=== PATIENT | female | born 1930 | race Caucasian/White ===

== ENCOUNTER → 2017-06-15 | Outpatient (CLI) | payer BC ==
[~2017-06-15] MED LIST: CITA40TA4; CYAN10005 SL; DVN80 PO; LEVO25TA5 PO; LPT40 PO; MRLP120 PO; MULT-190 PO; PPTBS PO; QUIN40TA18 PO; TPRSR/50 PO
[2017-06-15 11:06] LABS: BASO % 0.5 %; BASO ABS # 0.03 K/uL (0-0.2); COMPLETE YES; EOS % 0.3 %; HEMATOCRIT 36.2 % (37-47); IG% 0.2 %; LYMPH % 13.9 %; LYMPH ABS # 0.83 K/uL (1.2-3.4); MEAN CELL VOLUME 94.8 fL (80-100); MEAN CORPUSCULAR HEMOGLOBIN 31.9 pg (25-34); MEAN CORPUSCULAR HGB CONC 33.7 g/dl (32-36); MONO % 11.9 %; NEUT % 73.2 %; PLATELET COUNT 229 K/uL (130-400); RED BLOOD COUNT 3.82 M/uL (4.2-5.4); WHITE BLOOD COUNT 5.98 K/uL (4.8-10.8)
[2017-06-15 11:29] LABS: ALT/SGPT 19 U/L (12-78); AST/SGOT 17 U/L (15-37); BLOOD UREA NITROGEN 25 mg/dl (7-18); BUN/CREATININE RATIO 21.8 (10-20); CARBON DIOXIDE 28 mmol/L (21-32); CHLORIDE 104 mmol/L (98-107); CREATININE 1.14 mg/dl (0.60-1.20); GLUCOSE 122 mg/dl (70-99); SODIUM 139 mmol/L (136-145)
[2017-06-15 11:40] LABS: ALKALINE PHOSPHATASE 107 U/L (45-117); CHOLESTEROL 136 mg/dl (0-200); CHOLESTEROL/HDL RATIO 2.2; HDL CHOLESTEROL 63 mg/dl; LDL CHOLESTEROL CALCULATED 59 mg/dl; TRIGLYCERIDES 68 mg/dl (0-150); VERY LOW DENSITY LIPOPROT CALC 14 mg/dl
== END | disposition home or self-care (01) ==
LOC: C.LABBC 08:41
PROVIDERS: ATTEND Nurse Practitioner Adult Health
DX: D64.9 Anemia, unspecified (principal); E03.9 Hypothyroidism, unspecified; E78.00 Pure hypercholesterolemia, unspecified

== ENCOUNTER → 2017-07-14 | Outpatient (CLI) | payer BC ==
[2017-07-14 14:35] LABS: ESTIMATED AVERAGE GLUCOSE 114 mg/dl; HA1C FLAG Normal (Normal)
== END | disposition home or self-care (01) ==
LOC: C.LABBC 10:42
PROVIDERS: ATTEND Nurse Practitioner Adult Health
DX: R73.9 Hyperglycemia, unspecified (principal)

== ENCOUNTER 2017-08-01 12:43 | Inpatient (IN) | payer BC, OTHER ==
[~2017-08-01] VITALS: Ht 162.6 cm; Wt 54.5 kg
[2017-08-01] MEDS ORDERED: SODIUM CHLORIDE 0.9% 250ML 250 ML IV STA (13:10)
[2017-08-01 13:40] LABS: BASO % 0.1 %; BASO ABS # 0.01 K/uL (0-0.2); EOS % 0.1 %; EOS ABS # 0.01 K/uL (0-0.5); HEMOGLOBIN 11.4 g/dL (12.0-16.0); IG# 0.04 K/uL (0.00-0.02); LYMPH % 7.6 %; MEAN CELL VOLUME 95.6 fL (80-100); MEAN CORPUSCULAR HEMOGLOBIN 31.1 pg (25-34); MEAN CORPUSCULAR HGB CONC 32.6 g/dl (32-36); MEAN PLATELET VOLUME 9.2 fL (7.4-10.4); MONO % 8.1 %; MONO ABS # 0.85 K/uL (0.11-0.59); NEUT % 83.7 %; NEUT ABS # 8.77 K/uL (1.4-6.5); PLATELET COUNT 353 K/uL (130-400); RED CELL DISTRIBUTION WIDTH SD 48.9 fL (36.4-46.3); WHITE BLOOD COUNT 10.48 K/uL (4.8-10.8)
[2017-08-01] MEDS ORDERED: ATOR-24 PO (13:42)
[2017-08-01] MEDS ORDERED: MULT60CA PO (13:42)
[2017-08-01] MEDS ORDERED: CITA40TA12 PO (13:42)
[2017-08-01] MEDS ORDERED: METO50TA7 PO (13:42)
[2017-08-01] MEDS ORDERED: LEVO50TA6 PO (13:42)
[2017-08-01] MEDS ORDERED: DVN80 PO (13:42)
[2017-08-01] MEDS ORDERED: ASPI81TA28 PO (13:42)
[2017-08-01] MEDS ORDERED: CHOL1000 PO (13:42)
[2017-08-01] MEDS ORDERED: QUIN40TA18 PO (13:42)
[2017-08-01] MEDS ORDERED: CYAN10005 PO (13:42)
[2017-08-01] MEDS ORDERED: DOCU-94 PO (13:42)
[2017-08-01 13:49] LABS: INR 1.1 (0.9-1.1); PTT PATIENT 26.8 SECONDS (21.0-31.0)
[2017-08-01 13:53] LABS: CALCIUM 9.6 mg/dl (8.5-10.1); CREATININE 1.55 mg/dl (0.60-1.20); POTASSIUM 4.5 mmol/L (3.5-5.1)
[2017-08-01 13:56] LABS: TOTAL PROTEIN 7.2 gm/dl (6.4-8.2)
--- NOTE | 2017-08-01 14:11 | DIAGNOSTIC IMAGING REPORT ---
CT OF THE ABDOMEN AND PELVIS WITHOUT CONTRAST, STONE PROTOCOL CLINICAL HISTORY: Hematuria. Low back pain. COMPARISON STUDY: CT of the abdomen and pelvis April 09, 2014. TECHNIQUE: Helical axial images of the abdomen and pelvis were obtained without IV or oral contrast according to renal stone protocol. A dose lowering technique was utilized adhering to the principles of ALARA. FINDINGS: A large hiatal hernia with intrathoracic stomach is noted. There are gallstones within the gallbladder. There is no evidence for acute cholecystitis. A low-attenuation left adrenal nodule is unchanged and consistent with an adenoma. Unenhanced images of the spleen, right adrenal gland and pancreas are normal. There is a diverticulum of the second portion of the duodenum. Note is made of a 3 x 2.4 cm calculus within the right renal pelvis. There is a 1.9 cm right renal calculus. There is severe right hydroureteronephrosis and mild right hydroureter. No definite ureteral calculi are identified although the distal most aspects of the ureters were not imaged on this exam due to to marked pelvic floor relaxation. Mild left collecting system dilatation is noted with suspected additional left-sided parapelvic cysts. There is mild right perinephric infiltration. There is no evidence for a bowel obstruction. Colonic diverticulosis is noted without evidence for acute diverticulitis. Small fat-containing umbilical hernia is noted. There are no suspicious osseous lesions. There is no lymphadenopathy or ascites. No pneumatosis, free air or portal venous gas is present. A cystocele is again noted. IMPRESSION: 1. Severe right hydronephrosis and mild right hydroureter with mild right perinephric infiltration. 3 x 2.4 cm right renal pelvis calculus does not result in the obstruction. Distal most aspects of the ureters not imaged on this exam due to marked pelvic floor relaxation. No ureteral calculi identified within visualized portions of the ureters. Small inferior pelvic calcifications are unchanged from prior exam and favor phleboliths however small distal ureteral calculi could appear similar. Redemonstration of a cystocele. 2. 1.9 cm right renal calculus. No left renal calculi. Mild left collecting system dilatation. 3. Cholelithiasis. 4. Large hiatal hernia with intrathoracic stomach. Electronically signed by: Ross Ruano M.D. 08/01/2017 2:10 PM Dictated Date/Time: 08/01/2017 1:55 PM
[2017-08-01] MEDS ORDERED: CIPROFLOXACIN 400MG / 200ML D5W IV STA (16:54)
--- NOTE | 2017-08-01 17:43 | EMERGENCY ROOM VISIT NOTE ---
History Report prepared by Emil: Kourtney Marcelino Under the Supervision of: Dr. Kvng Jones M.D. First contact with patient: 13:02 Chief Complaint: URINARY SYMPTOMS Stated Complaint: BLOOD IN URINE/PAIN IN BACK WEAK History of Present Illness The patient is an 87 year old female who presents to the Emergency Room with complaints of persistent hematuria starting earlier today. The patient is typically incontinent of urine. She noticed some blood in her urine today. She also has bilateral lower back pain. She describes the pain as aching. She is feeling a little weaker than usual. She denies any fever, vomiting, diarrhea, black stools, or bloody stools. She had some constipation for 3-4 days which has resolved. She denies any falls. She is not on any blood thinners. She has a history of hypertension. Source of History: patient, family Onset: earlier today Position: other (global) Quality: other (hematuria) Timing: other (persistent) Associated Symptoms: + back pain, + weakness, No fevers, No vomiting, No melena, No hematochezia, No diarrhea Note: Pt reports constipation which has resolved. Review of Systems See HPI for pertinent positives & negatives. A total of 10 systems reviewed and were otherwise negative. Past Medical & Surgical Medical Problems: (1) Colon cancer (2) Cystocele (3) Diverticulosis (4) High cholesterol (5) Hypertension (6) Obstructive uropathy (7) Ureteral stone with hydronephrosis Family History Noncontributory secondary to age. Social History Smoking Status: Never Smoker Alcohol Use: none Drug Use: none Housing Status: lives with family Occupation Status: retired Current/Historical Medications Scheduled Aspirin (Aspirin Ec), 81 MG PO DAILY Atorvastatin (Lipitor), 40 MG PO DAILY Cholecalciferol (Vitamin D3), 1 TAB PO DAILY Citalopram Hydrobromide (Celexa), 40 MG PO DAILY Cyanocobalamin (Vitamin B-12), 1,000 MCG PO DAILY Docusate Sodium (Colace), 1 CAP PO BID Levothyroxine Sodium (Levothyroxine Sodium), 1 TAB PO DAILY Metoprolol Succ (Toprol Xl) (Toprol-Xl), 50 MG PO DAILY Multiple Vitamins W/ Minerals (Preservision Areds 2), 2 CAP PO DAILY Quinapril Hcl (Accupril), 40 MG PO DAILY Valsartan (Diovan), 80 MG PO DAILY Allergies Coded Allergies: No Known Allergies (Verified , 08/01/17) Physical Exam Vital Signs Date Time Temp Pulse Resp B/P (MAP) Pulse Ox O2 Delivery O2 Flow Rate FiO2 08/01/17 16:30 83 16 120/60 93 Room Air 08/01/17 15:30 74 18 133/71 98 Room Air 08/01/17 14:37 75 20 146/69 93 Room Air 08/01/17 12:55 36.4 72 16 137/59 96 Room Air Physical Exam Constitutional: Vital signs reviewed. Eyes: Pupils are equal round reactive to light. Conjunctiva are noninjected. ENT: Pharynx is clear without erythema or exudate. Mucous membranes are slightly dry. Neck supple without meningeal signs. Respiratory: Clear to auscultation bilaterally. Breath sounds are equal bilaterally. Cardiovascular: Regular rate and rhythm. No rubs or gallops. GI: Soft, nondistended and nontender. Bowel sounds are present. Musculoskeletal: No peripheral edema. No lower extremity tenderness. No CVA tenderness. No midline tenderness to the thoracic or lumbosacral spine. Integumentary: No cyanosis. Neurological: The patient is awake and alert. No focal deficits. Psychiatric: Normal affect. Medical Decision & Procedures ER Provider Diagnostic Interpretation: Radiology results as stated below per my review and the radiologist's interpretation: CT OF THE ABDOMEN AND PELVIS WITHOUT CONTRAST, STONE PROTOCOL CLINICAL HISTORY: Hematuria. Low back pain. COMPARISON STUDY: CT of the abdomen and pelvis April 09, 2014. TECHNIQUE: Helical axial images of the abdomen and pelvis were obtained without IV or oral contrast according to renal stone protocol. A dose lowering technique was utilized adhering to the principles of ALARA. FINDINGS: A large hiatal hernia with intrathoracic stomach is noted. There are gallstones within the gallbladder. There is no evidence for acute cholecystitis. A low-attenuation left adrenal nodule is unchanged and consistent with an adenoma. Unenhanced images of the spleen, right adrenal gland and pancreas are normal. There is a diverticulum of the second portion of the duodenum. Note is made of a 3 x 2.4 cm calculus within the right renal pelvis. There is a 1.9 cm right renal calculus. There is severe right hydroureteronephrosis and mild right hydroureter. No definite ureteral calculi are identified although the distal most aspects of the ureters were not imaged on this exam due to to marked pelvic floor relaxation. Mild left collecting system dilatation is noted with suspected additional left-sided parapelvic cysts. There is mild right perinephric infiltration. There is no evidence for a bowel obstruction. Colonic diverticulosis is noted without evidence for acute diverticulitis. Small fat-containing umbilical hernia is noted. There are no suspicious osseous lesions. There is no lymphadenopathy or ascites. No pneumatosis, free air or portal venous gas is present. A cystocele is again noted. IMPRESSION: 1. Severe right hydronephrosis and mild right hydroureter with mild right perinephric infiltration. 3 x 2.4 cm right renal pelvis calculus does not result in the obstruction. Distal most aspects of the ureters not imaged on this exam due to marked pelvic floor relaxation. No ureteral calculi identified within visualized portions of the ureters. Small inferior pelvic calcifications are unchanged from prior exam and favor phleboliths however small distal ureteral calculi could appear similar. Redemonstration of a cystocele. 2. 1.9 cm right renal calculus. No left renal calculi. Mild left collecting system dilatation. 3. Cholelithiasis. 4. Large hiatal hernia with intrathoracic stomach. Electronically signed by: Ross Ruano M.D. 08/01/2017 2:10 PM Dictated Date/Time: 08/01/2017 1:55 PM Laboratory Results 08/01/17 13:22 Red Blood Count 3.66, Mean Corpuscular Volume 95.6, Mean Corpuscular Hemoglobin 31.1, Mean Corpuscular Hemoglobin Concent 32.6, Mean Platelet Volume 9.2, Neutrophils (%) (Auto) 83.7, Lymphocytes (%) (Auto) 7.6, Monocytes (%) (Auto) 8.1, Eosinophils (%) (Auto) 0.1, Basophils (%) (Auto) 0.1, Neutrophils # (Auto) 8.77, Lymphocytes # (Auto) 0.80, Monocytes # (Auto) 0.85, Eosinophils # (Auto) 0.01, Basophils # (Auto) 0.01 08/01/17 13:22 Test 08/01/17 13:22 08/01/17 15:41 White Blood Count 10.48 K/uL (4.8-10.8) Red Blood Count 3.66 M/uL (4.2-5.4) Hemoglobin 11.4 g/dL (12.0-16.0) Hematocrit 35.0 % (37-47) Mean Corpuscular Volume 95.6 fL (80-100) Mean Corpuscular Hemoglobin 31.1 pg (25-34) Mean Corpuscular Hemoglobin Concent 32.6 g/dl (32-36) Platelet Count 353 K/uL (130-400) Mean Platelet Volume 9.2 fL (7.4-10.4) Neutrophils (%) (Auto) 83.7 % Lymphocytes (%) (Auto) 7.6 % Monocytes (%) (Auto) 8.1 % Eosinophils (%) (Auto) 0.1 % Basophils (%) (Auto) 0.1 % Neutrophils # (Auto) 8.77 K/uL (1.4-6.5) Lymphocytes # (Auto) 0.80 K/uL (1.2-3.4) Monocytes # (Auto) 0.85 K/uL (0.11-0.59) Eosinophils # (Auto) 0.01 K/uL (0-0.5) Basophils # (Auto) 0.01 K/uL (0-0.2) RDW Standard Deviation 48.9 fL (36.4-46.3) RDW Coefficient of Variation 14.0 % (11.5-14.5) Immature Granulocyte % (Auto) 0.4 % Immature Granulocyte # (Auto) 0.04 K/uL (0.00-0.02) Prothrombin Time 11.4 SECONDS (9.0-12.0) Prothromb Time International Ratio 1.1 (0.9-1.1) Activated Partial Thromboplast Time 26.8 SECONDS (21.0-31.0) Partial Thromboplastin Ratio 1.0 Anion Gap 5.0 mmol/L (3-11) Est Creatinine Clear Calc Drug Dose 21.2 ml/min Estimated GFR () 34.1 Estimated GFR (Non- 29.4 BUN/Creatinine Ratio 17.2 (10-20) Calcium Level 9.6 mg/dl (8.5-10.1) Total Bilirubin 0.7 mg/dl (0.2-1) Direct Bilirubin 0.2 mg/dl (0-0.2) Aspartate Amino Transf (AST/SGOT) 11 U/L (15-37) Alanine Aminotransferase (ALT/SGPT) 17 U/L (12-78) Alkaline Phosphatase 97 U/L (45-117) Total Protein 7.2 gm/dl (6.4-8.2) Albumin 3.0 gm/dl (3.4-5.0) Urine Color ORANGE Urine Appearance TURBID (CLEAR) Urine pH >= 9.0 (4.5-7.5) Urine Specific [place] 1.016 (1.000-1.030) Urine Protein 1+ (NEG) Urine Glucose (UA) NEG (NEG) Urine Ketones TRACE (NEG) Urine Occult Blood 3+ (NEG) Urine Nitrite NEG (NEG) Urine Bilirubin NEG (NEG) Urine Urobilinogen NEG (NEG) Urine Leukocyte Esterase LARGE (NEG) Urine WBC (Auto) >30 /hpf (0-5) Urine RBC (Auto) >30 /hpf (0-4) Urine Hyaline Casts (Auto) >30 /lpf (0-5) Urine Epithelial Cells (Auto) >30 /lpf (0-5) Urine Bacteria (Auto) 4+ (NEG) Urine Mucus PRESENT (NONE PRSENT) Urine Yeast (Auto) (NONE PRSENT) Laboratory results as reviewed by me. Medications Administered Medications (Trade) Dose Ordered Sig/Lee Route Start Time Stop Time Status Last Admin Dose Admin Sodium Chloride 250 ml @ 999 mls/hr Q16M STAT IV 08/01/17 13:10 08/01/17 13:25 DC 08/01/17 13:32 999 MLS/HR Ciprofloxacin/ Dextrose (Cipro / D5W) 400 mg NOW STAT IV 08/01/17 16:54 08/01/17 16:55 DC 08/01/17 17:03 400 MG Procedure Damon catheter placement Indication: Hematuria and incontinence The patient was placed supine. I did manually reduce the patient's uterine prolapse. I did prep the skin with Betadine. Using sterile technique I did place a standard size Damon catheter in the urethra and obtained blood tinged urine. The balloon was inflated with normal saline. I did test his balloon prior to insertion. The patient tolerated the procedure without any difficulty. ED Course 1303: The patient was evaluated in room C12B. A complete history and physical exam was performed. 1310: NSS 250 ml @ 999 mls/hr IV. 1445: I reevaluated the patient. The nurses asked me to place the Damon catheter due to uterine prolapse and difficulty with landmarks. I placed the Damon catheter according to procedure. 1533: I reevaluated the patient. I updated her and her daughter on the results. 1653: I discussed the patient's case with Dr. Pelaez, [facility] urology. He agrees with the plan for admission and antibiotics. 1654: Ciprofloxacin/Dextrose 400 mg IV. 1656: I reevaluated the patient. I discussed the test results with her and her daughter. They verbalized agreement of the treatment plan. She will be evaluated for further management. 1710: I spoke with Dr. Cespedes of [facility] hospitalist service. We discussed the patient and her results. The patient will be further evaluated by her. Medical Decision This is an 87-year-old female who presents with back pain and hematuria. Differential diagnosis includes kidney stone, obstructive uropathy, UTI, pyelonephritis, renal cell carcinoma, bladder mass. I did perform a limited focused review of portions of the patient's old chart on the electronic medical record. The patient's reports from CT scan in 2013 demonstrate bilateral hydronephrosis. I did evaluate the patient as noted above. IV access was established. I did treat the patient with normal saline IV. The nurses were having a difficult time getting a Damon catheter in because of uterine prolapse so I did place the Damon catheter myself as described above. I did order and personally review the patient's urinalysis as described above. A urine culture was sent. I did order and review the patient's blood work as noted in the electronic medical record. Her white blood cell count is minimal elevated. Creatinine is also slightly elevated. I did order a CT of the abdomen and pelvis. I did review the images myself as well as the radiology report as described above. She does have hydronephrosis on the right side with stranding. Her symptoms are consistent with a right pyelonephritis. I did treat her with Cipro IV. I did discuss case with urology who recommended that she obtain a pessary to help with her uterine prolapse. I also spoke to the case management director and hospitalist. I did discuss the test results with the patient and her daughter. Medication Reconcilliation Current Medication List: was personally reviewed by me Blood Pressure Screening Patient's blood pressure: Elevated blood pressure Blood pressure disposition: Referred to PCP Consults Time Called: 1646 Consulting Physician: Dr. Pelaez, [facility] urology Returned Call: [phone] I discussed the patient's case with him. He agrees with the plan for admission and antibiotics. Additional Consults: Time Called: 1654 Consulted Physician: Dr. Cespedes of [facility] hospitalist service Returned Call: [phone] Additional Comments: I spoke with her. We discussed the patient and her results. The patient will be further evaluated by her. Impression Primary Impression: Pyelonephritis Additional Impressions: Hydronephrosis, right Elevated serum creatinine Scribe Attestation The scribe's documentation has been prepared under my direct and personally reviewed by me in its entirety. I confirm that the note above accurately reflects all work, treatment, procedures, and medical decision making performed by me. Departure Information Dispostion Being Evaluated By Hospitalist Referrals Estefania Neely C.R.N.P. (PCP) Patient Instructions My [facility] Problem Qualifiers
[2017-08-01] MEDS ORDERED: POLYETHYLENE (MIRALAX) 17 GM PACK PO PRN (18:00)
[2017-08-01] MEDS ORDERED: MAGNESIUM HYDROXIDE SUSP 30 ML UDC PO PRN (18:00)
[2017-08-01] MEDS ORDERED: ACETAMINOPHEN 325 MG TAB PO PRN (18:00)
[2017-08-01 18:15] VITALS: O2SAT 93; Ht 162.6 cm; Wt 54.5 kg
[2017-08-01 19:59] VITALS: BP 128/55; PULSE 75; TEMP 36.8; O2SAT 92
[2017-08-01] MEDS ORDERED: CIPROFLOXACIN CONSULT ACTIVE PRN (20:15)
[2017-08-01] MEDS: DOCUSATE SODIUM 100 MG CAP PO SCH (20:59)
[2017-08-01] MEDS ORDERED: CIPROFLOXACIN / D5W 400 MG in PREMIXED IN D5W 200 ML IV SCH (21:00)
--- NOTE | 2017-08-01 21:00 | History and Physical ---
History & Physical Date & Time of Service: Aug 01, 2017 at 20:43 Chief Complaint: Hydronephrosis, Right. Pyelonephritis Primary Care Physician: Chasity Jaramillo MD History of Present Illness Source: patient, family This patient is an 87-year-old female with a history of cystocele, hypertension , colon cancer, hyperlipidemia, nephrolithiasis, depression with anxiety disorder, hypothyroidism, anemia, and macular degeneration, who presented to the ER with an episode of gross hematuria and bilateral flank pain 1 day. Patient reports she was standing in the shower and had to urinate and couldn't hold it so upon urinating shower, she noticed gross blood. In the ER, she had a CT abdomen and pelvis which showed severe right-sided hydronephrosis and hydroureter, along with perinephric stranding on the right. Her UA was grossly abnormal for infection. There is difficulty in placement of her Damon catheter due to her large cystocele, but the ER M.D. was able to reduce the cystocele in place the Damon catheter. Urology recommended MEDIA AID consultation for pessary placement, however the patient's daughter reports she has tried that multiple times in the past and they have all fallen out. She does not meet any criteria for sepsis at this time, but her creatinine was elevated at 1.55 from her baseline of 1.0. She is admitted for severe right-sided hydronephrosis and hydroureter, pyelonephritis, and acute kidney injury. Past Medical/Surgical History PMH: History of Colon cancer-resolved status post polypectomy Cystocele Diverticulosis High cholesterol Hypertension Obstructive uropathy Nephrolithiasis Depression with anxiety disorder Hypothyroidism Anemia Macular degeneration Asymptomatic cholelithiasis PSH: Hysterectomy-performed for menorrhagia Colon polypectomy endoscopically Family History Noncontributory due to advanced age Social History Smoking Status: Never Smoker Alcohol Use: none Drug Use: none Housing status: lives alone Occupational Status: retired Immunizations History of Influenza Vaccine: No History of Tetanus Vaccine?: Unknown History of Pneumococcal: No History of Hepatitis B Vaccine: No Multi-Drug Resistant Organisms History of MDRO: No Allergies Coded Allergies: No Known Allergies (Verified , 08/01/17) Home Medications Scheduled Aspirin (Aspirin Ec), 81 MG PO DAILY Atorvastatin (Lipitor), 40 MG PO DAILY Cholecalciferol (Vitamin D3), 1 TAB PO DAILY Citalopram Hydrobromide (Celexa), 40 MG PO DAILY Cyanocobalamin (Vitamin B-12), 1,000 MCG PO DAILY Docusate Sodium (Colace), 1 CAP PO BID Levothyroxine Sodium (Levothyroxine Sodium), 1 TAB PO DAILY Metoprolol Succ (Toprol Xl) (Toprol-Xl), 50 MG PO DAILY Multiple Vitamins W/ Minerals (Preservision Areds 2), 2 CAP PO DAILY Quinapril Hcl (Accupril), 40 MG PO DAILY Valsartan (Diovan), 80 MG PO DAILY Review of Systems Constitutional: + chills, No fever Eyes: No problem reported ENT: No problem reported Respiratory: No shortness of breath Cardiovascular: No chest pain Abdomen: No pain, No nausea, No vomiting, No diarrhea, No constipation, No GI bleeding Musculoskeletal: No problem reported Genitourinary - Female: + hematuria Neurologic: No problem reported Psychiatric: No problem reported Endocrine: No problem reported Hematologic / Lymphatic: No problem reported Integumentary: No problem reported Allergic / Immunologic: No problem reported Physical Exam Vital Signs Date Time Temp Pulse Resp B/P (MAP) Pulse Ox O2 Delivery O2 Flow Rate FiO2 08/01/17 19:59 36.8 75 16 128/55 (79) 92 Room Air 08/01/17 19:38 75 18 120/67 93 Room Air 08/01/17 18:15 93 Room Air 08/01/17 16:30 83 16 120/60 93 Room Air 08/01/17 15:30 74 18 133/71 98 Room Air 08/01/17 14:37 75 20 146/69 93 Room Air 08/01/17 12:55 36.4 72 16 137/59 96 Room Air General Appearance: WD/WN, no apparent distress Head: normocephalic, atraumatic Eyes: normal inspection, PERRL, EOMI, sclerae normal ENT: hearing grossly normal, pharynx normal Neck: supple, no adenopathy, thyroid normal, trachea midline Respiratory/Chest: lungs clear, normal breath sounds, no respiratory distress, no accessory muscle use Cardiovascular: regular rate, rhythm, no edema, no gallop, no murmur, normal peripheral pulses Abdomen/GI: normal bowel sounds, non tender (and no CVA tenderness), soft, no organomegaly, no pulsatile mass Genitourinary - Female: + pertinent finding (Damon catheter in place draining dark yellow slightly cloudy urine) Back: normal inspection, no CVA tenderness, no muscle spasm Extremities/Musculoskelatal: normal inspection, no calf tenderness, normal capillary refill, no pedal edema, normal range of motion Neurologic/Psych: no motor/sensory deficits, alert, normal mood/affect, oriented x 3 Skin: normal color, warm/dry, no rash Lymphatic: no adenopathy Diagnostics Laboratory Results Results Past 24 Hours Test 08/01/17 13:22 08/01/17 15:41 Range/Units White Blood Count 10.48 4.8-10.8 K/uL Red Blood Count 3.66 4.2-5.4 M/uL Hemoglobin 11.4 12.0-16.0 g/dL Hematocrit 35.0 37-47 % Mean Corpuscular Volume 95.6 80-100 fL Mean Corpuscular Hemoglobin 31.1 25-34 pg Mean Corpuscular Hemoglobin Concent 32.6 32-36 g/dl Platelet Count 353 130-400 K/uL Mean Platelet Volume 9.2 7.4-10.4 fL Neutrophils (%) (Auto) 83.7 % Lymphocytes (%) (Auto) 7.6 % Monocytes (%) (Auto) 8.1 % Eosinophils (%) (Auto) 0.1 % Basophils (%) (Auto) 0.1 % Neutrophils # (Auto) 8.77 1.4-6.5 K/uL Lymphocytes # (Auto) 0.80 1.2-3.4 K/uL Monocytes # (Auto) 0.85 0.11-0.59 K/uL Eosinophils # (Auto) 0.01 0-0.5 K/uL Basophils # (Auto) 0.01 0-0.2 K/uL RDW Standard Deviation 48.9 36.4-46.3 fL RDW Coefficient of Variation 14.0 11.5-14.5 % Immature Granulocyte % (Auto) 0.4 % Immature Granulocyte # (Auto) 0.04 0.00-0.02 K/uL Prothrombin Time 11.4 9.0-12.0 SECONDS Prothromb Time International Ratio 1.1 0.9-1.1 Activated Partial Thromboplast Time 26.8 21.0-31.0 SECONDS Partial Thromboplastin Ratio 1.0 Sodium Level 136 136-145 mmol/L Potassium Level 4.5 3.5-5.1 mmol/L Chloride Level 103 98-107 mmol/L Carbon Dioxide Level 28 21-32 mmol/L Anion Gap 5.0 3-11 mmol/L Blood Urea Nitrogen 27 7-18 mg/dl Creatinine 1.55 0.60-1.20 mg/dl Est Creatinine Clear Calc Drug Dose 21.2 ml/min Estimated GFR () 34.1 Estimated GFR (Non- 29.4 BUN/Creatinine Ratio 17.2 10-20 Random Glucose 124 70-99 mg/dl Calcium Level 9.6 8.5-10.1 mg/dl Total Bilirubin 0.7 0.2-1 mg/dl Direct Bilirubin 0.2 0-0.2 mg/dl Aspartate Amino Transf (AST/SGOT) 11 15-37 U/L Alanine Aminotransferase (ALT/SGPT) 17 12-78 U/L Alkaline Phosphatase 97 45-117 U/L Total Protein 7.2 6.4-8.2 gm/dl Albumin 3.0 3.4-5.0 gm/dl Urine Color ORANGE Urine Appearance TURBID CLEAR Urine pH >= 9.0 4.5-7.5 Urine Specific [place] 1.016 1.000-1.030 Urine Protein 1+ NEG Urine Glucose (UA) NEG NEG Urine Ketones TRACE NEG Urine Occult Blood 3+ NEG Urine Nitrite NEG NEG Urine Bilirubin NEG NEG Urine Urobilinogen NEG NEG Urine Leukocyte Esterase LARGE NEG Urine WBC (Auto) >30 0-5 /hpf Urine RBC (Auto) >30 0-4 /hpf Urine Hyaline Casts (Auto) >30 0-5 /lpf Urine Epithelial Cells (Auto) >30 0-5 /lpf Urine Bacteria (Auto) 4+ NEG Urine Mucus PRESENT NONE PRSENT Urine Yeast (Auto) NONE PRSENT Microbiology Results 08/01/17 Urine Culture, Received Pending Diagnostic Radiology CT abdomen/pelvis images personally reviewed by me and agree with the following radiology report: 1. Severe right hydronephrosis and mild right hydroureter with mild right perinephric infiltration. 3 x 2.4 cm right renal pelvis calculus does not result in the obstruction. Distal most aspects of the ureters not imaged on this exam due to marked pelvic floor relaxation. No ureteral calculi identified within visualized portions of the ureters. Small inferior pelvic calcifications are unchanged from prior exam and favor phleboliths however small distal ureteral calculi could appear similar. Redemonstration of a cystocele. 2. 1.9 cm right renal calculus. No left renal calculi. Mild left collecting system dilatation. 3. Cholelithiasis. 4. Large hiatal hernia with intrathoracic stomach. Impression Assessment and Plan This patient is an 87-year-old female with a history of cystocele, hypertension , colon cancer, hyperlipidemia, nephrolithiasis, depression with anxiety disorder, hypothyroidism, anemia, and macular degeneration, who presented to the ER with an episode of gross hematuria and bilateral flank pain 1 day. Patient reports she was standing in the shower and had to urinate and couldn't hold it so upon urinating shower, she noticed gross blood. In the ER, she had a CT abdomen and pelvis which showed severe right-sided hydronephrosis and hydroureter, along with perinephric stranding on the right. Her UA was grossly abnormal for infection. There is difficulty in placement of her Damon catheter due to her large cystocele, but the ER M.D. was able to reduce the cystocele in place the Damon catheter. Urology recommended MEDIA AID consultation for pessary placement, however the patient's daughter reports she has tried that multiple times in the past and they have all fallen out. She does not meet any criteria for sepsis at this time, but her creatinine was elevated at 1.55 from her baseline of 1.0. She is admitted for severe right-sided hydronephrosis and hydroureter, pyelonephritis, and acute kidney injury. Right-sided severe hydronephrosis/hydroureter/acute pyelonephritis/bladder outlet obstruction and cystocele/large nephrolithiasis/gross hematuria-had only mild fullness of the bilateral kidneys but no definite hydronephrosis on CT in 2013. Has failed pessary placement in the past. Now with very large stone on the right, with hydronephrosis, and acute kidney injury. No evidence of sepsis at this time. -Admit to medical floor -Keep Damon catheter in place for proper drainage of the bladder until definitive management can be made in consultation with urology -Continue Cipro renally dosed at 400 mg IV daily, but if renal function improves , will change back to 400 mg IV every 12 -Follow urine culture result -Follow CBC given mild leukocytosis on admission -Follow PRP to trend creatinine and electrolytes Acute kidney injury-baseline creatinine is 1.0-1.1, creatinine on admission was 1.55 Likely secondary to bladder outlet obstruction from cystocele causing severe hydronephrosis on the right -Hydrated with IV fluids -Damon catheter has been placed to relieve the obstruction -Follow PRP Hypertension/hyperlipidemia-stable this time -Continue quinapril/Toprol/Lipitor/Diovan -Holding home aspirin given gross hematuria Depression and anxiety disorder-stable -Continue Celexa Hypothyroidism-TSH was normal at 2.6 in May 2017 -Continue home dose of levothyroxine 59 pg by mouth daily Vitamin B12 deficiency/vitamin D deficiency-stable -Continue home doses of B12 and vitamin D Prophylaxis-SCDs only given gross hematuria Disposition-to home possibly with home health in 1-2 days, we'll consult PT/OT as she lives alone and requires a cane to get around DO NOT RESUSCITATE as discussed with patient with her daughter at the bedside Level of Care Med/Surg Advanced Directives Existing Living Will: No Existing Power of Underwater Hunter Trapper: No Resuscitation Status DO NOT RESUSCITATE VTE Prophylaxis VTE Risk Assessment Done? Y/N: Yes Risk Level: Moderate Given or contraindicated: SCD's Social Service Consult >80 yr.& Lives Alone Additional Copies To Chasity Jaramillo MD
[2017-08-01 23:05] VITALS: BP 116/67; PULSE 76; TEMP 36.6; O2SAT 98
[2017-08-02] VITALS (11 sets, daily range): BP systolic 121–157; BP diastolic 64–78; PULSE 70–89; TEMP 36.7–37.3; O2SAT 92–97
[2017-08-02] MEDS: LEVOTHYROXINE 50 MCG TAB PO SCH (05:57)
[2017-08-02] MEDS ORDERED: CIPROFLOXACIN / D5W 400 MG IV SCH (06:00)
[2017-08-02 07:35] LABS: BASO % 0.1 %; BASO ABS # 0.01 K/uL (0-0.2); EOS % 0.3 %; EOS ABS # 0.02 K/uL (0-0.5); HEMATOCRIT 31.4 % (37-47); HEMOGLOBIN 10.1 g/dL (12.0-16.0); IG# 0.02 K/uL (0.00-0.02); LYMPH % 10.5 %; LYMPH ABS # 0.78 K/uL (1.2-3.4); MEAN CELL VOLUME 94.9 fL (80-100); MEAN CORPUSCULAR HEMOGLOBIN 30.5 pg (25-34); MEAN CORPUSCULAR HGB CONC 32.2 g/dl (32-36); MEAN PLATELET VOLUME 8.6 fL (7.4-10.4); MONO % 9.3 %; MONO ABS # 0.69 K/uL (0.11-0.59); NEUT % 79.5 %; PLATELET COUNT 290 K/uL (130-400); RED CELL DISTRIBUTION WIDTH CV 13.9 % (11.5-14.5); RED CELL DISTRIBUTION WIDTH SD 48.3 fL (36.4-46.3); WHITE BLOOD COUNT 7.42 K/uL (4.8-10.8)
[2017-08-02 08:06] LABS: CALCIUM 8.7 mg/dl (8.5-10.1); CREATININE 1.21 mg/dl (0.60-1.20); POTASSIUM 4.6 mmol/L (3.5-5.1)
[2017-08-02] MEDS: DOCUSATE SODIUM 100 MG CAP PO SCH ×2 (08:58→20:31)
[2017-08-02] MEDS: CITALOPRAM 40 MG TAB PO SCH (08:58)
[2017-08-02] MEDS: ATORVASTATIN 40 MG TAB PO SCH (08:59)
[2017-08-02] MEDS: CEROVITE ADV FORMULA TAB PO SCH (08:59)
[2017-08-02] MEDS: VALSARTAN 80 MG TAB PO SCH (09:00)
[2017-08-02] MEDS: METOPROLOL SUCC 50MG EXT REL TAB PO SCH (09:00)
[2017-08-02] MEDS: CHOLECALCIFEROL 1000 INTER.UNIT TAB PO SCH (09:01)
[2017-08-02] MEDS: CYANOCOBALAMIN 500 MCG TAB (VIT B-12) PO SCH (09:01)
[2017-08-02] MEDS: ENALAPRIL MALEATE 10 MG TAB PO SCH (09:03)
--- NOTE | 2017-08-02 09:06 | Urology Consultation ---
History General Date of Service: Aug 02, 2017. Chief Complaint: right flank pain and gross hematuria Primary Care Physician: Chasity Jaramillo MD Pt seen a urologist before?: Yes (Dr. Pelaez, [facility]) History of Present Illness 87 yo female presents to [facility] with c/o right flank pain and gross hematuria. CT scan showing a large cystocele with right hydronephrosis and large right renal stones. The pt last saw Lizette BOYD and Dr. Pelaez in 2013 for grade 4 cystocele with secondary hydro. Failed pessary placement at the time, and did not wish to have any surgery. UA appears grossly infected. Culture pending. Cr was 1.55 on admission. Improved to 1.2 since higgins placement. Higgins catheter in place draining clear, yellow urine with some sediment. Imaging Imaging: CT Laboratory Last 24 Hours Test 08/01/17 13:22 08/01/17 15:41 08/02/17 07:24 White Blood Count 10.48 K/uL 7.42 K/uL Red Blood Count 3.66 M/uL 3.31 M/uL Hemoglobin 11.4 g/dL 10.1 g/dL Hematocrit 35.0 % 31.4 % Mean Corpuscular Volume 95.6 fL 94.9 fL Mean Corpuscular Hemoglobin 31.1 pg 30.5 pg Mean Corpuscular Hemoglobin Concent 32.6 g/dl 32.2 g/dl Platelet Count 353 K/uL 290 K/uL Mean Platelet Volume 9.2 fL 8.6 fL Neutrophils (%) (Auto) 83.7 % 79.5 % Lymphocytes (%) (Auto) 7.6 % 10.5 % Monocytes (%) (Auto) 8.1 % 9.3 % Eosinophils (%) (Auto) 0.1 % 0.3 % Basophils (%) (Auto) 0.1 % 0.1 % Neutrophils # (Auto) 8.77 K/uL 5.90 K/uL Lymphocytes # (Auto) 0.80 K/uL 0.78 K/uL Monocytes # (Auto) 0.85 K/uL 0.69 K/uL Eosinophils # (Auto) 0.01 K/uL 0.02 K/uL Basophils # (Auto) 0.01 K/uL 0.01 K/uL RDW Standard Deviation 48.9 fL 48.3 fL RDW Coefficient of Variation 14.0 % 13.9 % Immature Granulocyte % (Auto) 0.4 % 0.3 % Immature Granulocyte # (Auto) 0.04 K/uL 0.02 K/uL Prothrombin Time 11.4 SECONDS Prothromb Time International Ratio 1.1 Activated Partial Thromboplast Time 26.8 SECONDS Partial Thromboplastin Ratio 1.0 Sodium Level 136 mmol/L 140 mmol/L Potassium Level 4.5 mmol/L 4.6 mmol/L Chloride Level 103 mmol/L 106 mmol/L Carbon Dioxide Level 28 mmol/L 25 mmol/L Anion Gap 5.0 mmol/L 9.0 mmol/L Blood Urea Nitrogen 27 mg/dl 24 mg/dl Creatinine 1.55 mg/dl 1.21 mg/dl Est Creatinine Clear Calc Drug Dose 21.2 ml/min 27.1 ml/min Estimated GFR () 34.1 45.9 Estimated GFR (Non- 29.4 39.6 BUN/Creatinine Ratio 17.2 19.8 Random Glucose 124 mg/dl 75 mg/dl Calcium Level 9.6 mg/dl 8.7 mg/dl Total Bilirubin 0.7 mg/dl Direct Bilirubin 0.2 mg/dl Aspartate Amino Transf (AST/SGOT) 11 U/L Alanine Aminotransferase (ALT/SGPT) 17 U/L Alkaline Phosphatase 97 U/L Total Protein 7.2 gm/dl Albumin 3.0 gm/dl Urine Color ORANGE Urine Appearance TURBID Urine pH >= 9.0 Urine Specific [place] 1.016 Urine Protein 1+ Urine Glucose (UA) NEG Urine Ketones TRACE Urine Occult Blood 3+ Urine Nitrite NEG Urine Bilirubin NEG Urine Urobilinogen NEG Urine Leukocyte Esterase LARGE Urine WBC (Auto) >30 /hpf Urine RBC (Auto) >30 /hpf Urine Hyaline Casts (Auto) >30 /lpf Urine Epithelial Cells (Auto) >30 /lpf Urine Bacteria (Auto) 4+ Urine Mucus PRESENT Urine Yeast (Auto) Problem List Medical Problems: (1) Elevated serum creatinine Status: Acute (2) Hydronephrosis, right Status: Acute (3) Pyelonephritis Status: Acute Past History cancer - colon, deep vein thrombosis, depression, diverticulosis, high cholesterol, hypertension, hypothyroidism, kidney stones, osteoarthritis, other (hydronephrosis, anemia, macular degeneration, asymptomatic cholelithiasis) Pt had a problem w anesthesia?: No Past Surgical History: colonoscopy (with polypectomy), hysterectomy Family History non-contributory d/t age Social History Hx Tobacco Use In Past Year?: No Smoking: non-smoker Alcohol: no current use Drug use: none Housing status: lives alone Occupation status: retired Immunizations History of Influenza Vaccine: No History of Tetanus Vaccine?: Unknown History of Pneumococcal: No History of Hepatitis B Vaccine: No History of MDRO No Allergies Coded Allergies: No Known Allergies (Verified , 08/01/17) Medications Home Medications: Home Meds and Scripts Medications Dose Route/Sig Max Daily Dose Days Date Category Vitamin D3 (Cholecalciferol) 1,000 Unit Tab 1 Tab PO DAILY 08/01/17 Reported Vitamin B-12 (Cyanocobalamin) 1,000 Mcg Tab 1,000 Mcg PO DAILY 08/01/17 Reported Diovan (Valsartan) 80 Mg Tab 80 Mg PO DAILY 08/01/17 Reported Accupril (Quinapril HCl) 40 Mg Tab 40 Mg PO DAILY 08/01/17 Reported Preservision Areds 2 (Multiple Vitamins W/ Minerals) 1 Cap Cap 2 Cap PO DAILY 08/01/17 Reported Toprol-Xl (Metoprolol Succinate) 50 Mg Tabcr 50 Mg PO DAILY 08/01/17 Reported Levothyroxine Sodium 50 Mcg Tab 1 Tab PO DAILY 08/01/17 Reported Colace (Docusate Sodium) 100 Mg Cap 1 Cap PO BID 08/01/17 Reported Celexa (Citalopram Hydrobromide) 40 Mg Tab 40 Mg PO DAILY 08/01/17 Reported Lipitor (Atorvastatin Calcium) 40 Mg Tab 40 Mg PO DAILY 08/01/17 Reported Aspirin Ec (Aspirin) 81 Mg Tab 81 Mg PO DAILY 08/01/17 Reported Inpatient Medications: Current Inpatient Medications Medications (Trade) Dose Ordered Sig/Lee Route Start Time Stop Time Status Last Admin Dose Admin Acetaminophen (Tylenol Tab) 650 mg Q4H PRN PO 08/01/17 18:00 08/31/17 17:59 Magnesium Hydroxide (Milk Of Magnesia Susp) 30 ml Q6H PRN PO 08/01/17 18:00 08/31/17 17:59 Polyethylene (Miralax Powder Packet) 17 gm DAILY PRN PO 08/01/17 18:00 08/31/17 17:59 Atorvastatin Calcium (Lipitor Tab) 40 mg DAILY PO 08/02/17 09:00 09/01/17 08:59 Cholecalciferol (Vitamin D Tab) 1,000 inter.unit DAILY PO 08/02/17 09:00 09/01/17 08:59 Citalopram Hydrobromide (celeXA TAB) 40 mg DAILY PO 08/02/17 09:00 09/01/17 08:59 Cyanocobalamin (Vitamin B-12 Tab) 1,000 mcg DAILY PO 08/02/17 09:00 09/01/17 08:59 Docusate Sodium (coLACE CAP) 100 mg BID PO 08/01/17 21:00 08/31/17 20:59 08/01/17 20:59 100 MG Levothyroxine Sodium (Synthroid Tab) 50 mcg DAILYBB PO 08/02/17 06:00 09/01/17 06:59 08/02/17 05:57 50 MCG Metoprolol Succinate (Toprol Xl Tab) 50 mg DAILY PO 08/02/17 09:00 09/01/17 08:59 Valsartan (Diovan Tab) 80 mg DAILY PO 08/02/17 09:00 09/01/17 08:59 Multivitamins/ Minerals (Multivitamin W/ Minerals Tab) 2 tab DAILY PO 08/02/17 09:00 09/01/17 08:59 Enalapril Maleate (Vasotec Tab) 40 mg DAILY PO 08/02/17 09:00 09/01/17 08:59 Ciprofloxacin/ Dextrose 400 mg/ Prmx 200 ml @ 100 mls/hr DAILY@1700 IV 08/02/17 17:00 08/10/17 18:59 Ciprofloxacin (Consult) 1 ea UD PRN N/A 08/01/17 20:15 08/31/17 20:14 Review of Systems Review of Systems Constitutional: No fever, No chills Eyes: No double vision Neurological: No dizzy Endocrine: No excessive thirst Gastrointestinal: No abdominal pain, No nausea, No vomiting Cardiovascular: No chest pain Respiratory: No shortness of breath Skin: No rash Musculoskeletal: + arthritis Female : No painful urination, No blood in urine Physical Exam Vital Signs: Vital Signs Past 12 Hours Date Time Temp Pulse Resp B/P (MAP) Pulse Ox O2 Delivery O2 Flow Rate FiO2 08/02/17 07:49 92 Room Air 08/02/17 07:47 37.2 86 22 148/78 (101) 92 Room Air 08/02/17 07:30 Room Air 08/02/17 00:13 Room Air 08/01/17 23:05 36.6 76 15 116/67 (83) 98 Room Air Physical Exam: General Appearance: no apparent distress Eyes: bilateral eyes normal inspection ENT: hearing grossly normal Neck: no JVD Respiratory/Chest: no respiratory distress, no accessory muscle use Cardiovascular: no JVD Genitourinary - Female: Vagina: cystocele (Grade IV) Extremities: normal inspection Neurologic/Psychiatric: alert, normal mood/affect, oriented x 3 Skin: normal color Assessment & Plan Assessment & Plan A/P: Grade IV cystocele with right hydronephrosis, suspected UTI, hx of gross hematuria, and large right renal stones AFVSS. Pt with large complicated cystocele causing hydro. Unfortunately she has failed pessary placement in the past. I will consult TUBE MACHINE OPERATOR HELPER for their input, but am uncertain a pessary can be placed with this large of a prolapse. Pt may need referral to Urogyn for input. Pt also with large right renal stones. Given the size, may need referred to [facility] for management with PCNL. Thanks for the consult. Will await TUBE MACHINE OPERATOR HELPER input and continue to follow along with primary service. ADDENDUM: Pt seen and assessed by Dr. Prince and Dr. Coreas this morning. Plan for pessary placement today by Dr. Coreas, and right ureteral stent placement by Dr. Prince. Attending Addendum: Seen. Agree with above. Agree with physical exam findings. Plan to place right stent due to questionable calcification and severe hydronephrosis. Pessary in place. Cysto, Right Retrograde, Right Stent.
--- NOTE | 2017-08-02 09:30 | Hospitalist Progress Note ---
Hospitalist Progress Note Date of Service Aug 02, 2017. Subjective Pt evaluation today including: conversation w/ patient, conversation w/ technical solutions consultant (Urology) Voiding: higgins catheter in place Pt has no complaints. Vahid reg diet. No abd pain, no CP or SOB All Other Systems: Reviewed and Negative Objective Vital Signs Date Time Temp Pulse Resp B/P (MAP) Pulse Ox O2 Delivery O2 Flow Rate FiO2 08/02/17 07:49 92 Room Air 08/02/17 07:47 37.2 86 22 148/78 (101) 92 Room Air 08/02/17 07:30 Room Air 08/02/17 00:13 Room Air 08/01/17 23:05 36.6 76 15 116/67 (83) 98 Room Air 08/01/17 19:59 36.8 75 16 128/55 (79) 92 Room Air 08/01/17 19:38 75 18 120/67 93 Room Air 08/01/17 18:15 93 Room Air 08/01/17 16:30 83 16 120/60 93 Room Air 08/01/17 15:30 74 18 133/71 98 Room Air 08/01/17 14:37 75 20 146/69 93 Room Air 08/01/17 12:55 36.4 72 16 137/59 96 Room Air Physical Exam General Appearance: WD/WN, no apparent distress Eyes: normal inspection, sclerae normal ENT: hearing grossly normal Neck: trachea midline Respiratory/Chest: lungs clear, normal breath sounds, no respiratory distress, no accessory muscle use Cardiovascular: regular rate, rhythm, no edema, no gallop, no murmur Abdomen: normal bowel sounds, non tender, soft, no organomegaly, + pertinent finding (large cystocele protruding from vagina, nontender) Extremities: non-tender, normal inspection, no pedal edema, no calf tenderness Neurologic/Psychiatric: alert, normal mood/affect, oriented x 3 Skin: normal color, warm/dry, no rash Laboratory Results Last 24 Hours Test 08/01/17 13:22 08/01/17 15:41 08/02/17 07:24 White Blood Count 10.48 K/uL 7.42 K/uL Red Blood Count 3.66 M/uL 3.31 M/uL Hemoglobin 11.4 g/dL 10.1 g/dL Hematocrit 35.0 % 31.4 % Mean Corpuscular Volume 95.6 fL 94.9 fL Mean Corpuscular Hemoglobin 31.1 pg 30.5 pg Mean Corpuscular Hemoglobin Concent 32.6 g/dl 32.2 g/dl Platelet Count 353 K/uL 290 K/uL Mean Platelet Volume 9.2 fL 8.6 fL Neutrophils (%) (Auto) 83.7 % 79.5 % Lymphocytes (%) (Auto) 7.6 % 10.5 % Monocytes (%) (Auto) 8.1 % 9.3 % Eosinophils (%) (Auto) 0.1 % 0.3 % Basophils (%) (Auto) 0.1 % 0.1 % Neutrophils # (Auto) 8.77 K/uL 5.90 K/uL Lymphocytes # (Auto) 0.80 K/uL 0.78 K/uL Monocytes # (Auto) 0.85 K/uL 0.69 K/uL Eosinophils # (Auto) 0.01 K/uL 0.02 K/uL Basophils # (Auto) 0.01 K/uL 0.01 K/uL RDW Standard Deviation 48.9 fL 48.3 fL RDW Coefficient of Variation 14.0 % 13.9 % Immature Granulocyte % (Auto) 0.4 % 0.3 % Immature Granulocyte # (Auto) 0.04 K/uL 0.02 K/uL Prothrombin Time 11.4 SECONDS Prothromb Time International Ratio 1.1 Activated Partial Thromboplast Time 26.8 SECONDS Partial Thromboplastin Ratio 1.0 Sodium Level 136 mmol/L 140 mmol/L Potassium Level 4.5 mmol/L 4.6 mmol/L Chloride Level 103 mmol/L 106 mmol/L Carbon Dioxide Level 28 mmol/L 25 mmol/L Anion Gap 5.0 mmol/L 9.0 mmol/L Blood Urea Nitrogen 27 mg/dl 24 mg/dl Creatinine 1.55 mg/dl 1.21 mg/dl Est Creatinine Clear Calc Drug Dose 21.2 ml/min 27.1 ml/min Estimated GFR () 34.1 45.9 Estimated GFR (Non- 29.4 39.6 BUN/Creatinine Ratio 17.2 19.8 Random Glucose 124 mg/dl 75 mg/dl Calcium Level 9.6 mg/dl 8.7 mg/dl Total Bilirubin 0.7 mg/dl Direct Bilirubin 0.2 mg/dl Aspartate Amino Transf (AST/SGOT) 11 U/L Alanine Aminotransferase (ALT/SGPT) 17 U/L Alkaline Phosphatase 97 U/L Total Protein 7.2 gm/dl Albumin 3.0 gm/dl Urine Color ORANGE Urine Appearance TURBID Urine pH >= 9.0 Urine Specific [place] 1.016 Urine Protein 1+ Urine Glucose (UA) NEG Urine Ketones TRACE Urine Occult Blood 3+ Urine Nitrite NEG Urine Bilirubin NEG Urine Urobilinogen NEG Urine Leukocyte Esterase LARGE Urine WBC (Auto) >30 /hpf Urine RBC (Auto) >30 /hpf Urine Hyaline Casts (Auto) >30 /lpf Urine Epithelial Cells (Auto) >30 /lpf Urine Bacteria (Auto) 4+ Urine Mucus PRESENT Urine Yeast (Auto) Assessment and Plan This patient is an 87-year-old female with a history of grade 4 cystocele, hypertension, colon cancer, hyperlipidemia, nephrolithiasis, depression with anxiety disorder, hypothyroidism, anemia, and macular degeneration, who presented to the ER with an episode of gross hematuria and bilateral flank pain [address] abdomen and pelvis which showed severe right-sided hydronephrosis and hydroureter, along with perinephric stranding on the right. Her UA was grossly abnormal for infection. There is difficulty in placement of her Higgins catheter due to her large cystocele, but the ER M.D. was able to reduce the cystocele in place the Higgins catheter. Urology recommended MEDICAL ART THERAPIST consultation for pessary placement, however the patient's daughter reports she has tried that multiple times in the past and they have all fallen out. She does not meet any criteria for sepsis at this time, but her creatinine was elevated at 1.55 on admission from her baseline of 1.0. She is admitted for severe right-sided hydronephrosis and hydroureter, pyelonephritis, and acute kidney injury. Right-sided severe hydronephrosis/hydroureter/acute pyelonephritis/bladder outlet obstruction and cystocele/large nephrolithiasis/gross hematuria-had only mild fullness of the bilateral kidneys but no definite hydronephrosis on CT in 2013. Has failed pessary placement in the past. Now with very large stone on the right, with hydronephrosis, and acute kidney injury. No evidence of sepsis at this time. With Grade 4 cystocele. Rad report says cannot visualize distal ureters due to prolapse. -Admit to medical floor -Keep Higgins catheter in place for proper drainage of the bladder until definitive management can be made in consultation with urology and MEDICAL ART THERAPIST-d/w Urology today, will see if MEDICAL ART THERAPIST can help manage today, consult placed--> plan for pessary placement today, Urol may want to do cystoscopy and ureteroscopy with stent placement on right -Continue Cipro renally dosed at 400 mg IV daily, but if renal function improves , will change back to 400 mg IV every 12-will defer to Pharmacy consult today -Follow urine culture result -Follow CBC given mild leukocytosis on admission -Follow PRP to trend creatinine and electrolytes Acute kidney injury-baseline creatinine is 1.0-1.1, creatinine on admission was 1.55--> down to 1.21 today Likely secondary to bladder outlet obstruction from cystocele causing severe hydronephrosis on the right, but also has large stone and possible smallk stone distal right ureter -Hydrated with IV fluids -Higgins catheter has been placed to relieve the obstruction -Follow PRP -Urology may place stent today Hypertension/hyperlipidemia-stable this time -Continue quinapril/Toprol/Lipitor/Diovan -Holding home aspirin given gross hematuria Depression and anxiety disorder-stable -Continue Celexa Hypothyroidism-TSH was normal at 2.6 in May 2017 -Continue home dose of levothyroxine 50 mcg by mouth daily Vitamin B12 deficiency/vitamin D deficiency-stable -Continue home doses of B12 and vitamin D Prophylaxis-SCDs only given gross hematuria Disposition-to home possibly with home health in 1-2 days, we'll consult PT/OT as she lives alone and requires a cane to get around DO NOT RESUSCITATE as discussed with patient with her daughter at the bedside
[2017-08-02] MEDS ORDERED: CIPROFLOXACIN 400MG / 200ML D5W IV ONE (09:45)
--- NOTE | 2017-08-02 10:47 | DIAGNOSTIC IMAGING REPORT ---
CHEST 2 VIEWS ROUTINE CLINICAL HISTORY: pre-op COMPARISON STUDY: 03/17/2014 FINDINGS: Mild stable cardiomegaly. Large fixed hiatal hernia unchanged. Minimal bibasilar atelectasis. Lungs otherwise appear clear. Several stable calcified granulomas. IMPRESSION: Mild stable cardiomegaly. Hiatal hernia. Otherwise negative study. The above report was generated using voice recognition software. It may contain grammatical, syntax or spelling errors. Electronically signed by: Doyle Gamez M.D. 08/02/2017 10:46 AM Dictated Date/Time: 08/02/2017 10:45 AM
--- NOTE | 2017-08-02 10:56 | GYNECOLOGICAL CONSULTATION ---
DATE OF CONSULTATION: 08/02/2017 REQUESTING PROVIDER: Evelyn James, urology. INDICATION: Complete vaginal vault prolapse. HISTORY OF PRESENT ILLNESS: The patient is an 87-year-old 3, para 3, postmenopausal female, status post previous hysterectomy, who was admitted to the hospitalist service with right hydroureter, right hydronephrosis and probable pyelonephritis. The patient had an episode of gross hematuria and presented to the Emergency Room. Radiographical evaluation showed right hydronephrosis as well as right hydroureter. The patient has a large 2-cm stone in the right kidney. The patient has a known pelvic relaxation. Apparently, she had pessaries fitted by urology, which did not remain in place. She has not had a pessary for over 3 years. The patient states that she is able to empty her bladder without difficulty. She does not complain of any stress urinary incontinence symptoms. The patient states that she had her hysterectomy done for a bleeding problem many years ago in [place]. She believes this was from an abdominal procedure. PAST MEDICAL HISTORY: OBSTETRICAL: x3. GYNECOLOGICAL: As above. PHYSICAL EXAMINATION: GENERAL: Today shows an elderly female in no acute distress. ABDOMEN: Soft and nontender. BACK: Shows mild right CVA tenderness. PELVIC: Shows atrophic external genitalia with complete eversion of the vaginal vault. The vaginal mucosa is dry and cracked consistent with the eversion of the vault. Damon catheter is draining, in place. PROCEDURE NOTE: In a dorsal lithotomy position, the pelvic prolapse is reduced manually. The patient is fitted with a #3 flexible Gellhorn pessary. Damon catheter is removed. The patient tolerates the procedure well. 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 PLAN: The pessary has been inserted and with the shape of the flexible Gellhorn, I am confident that the pessary will remain in place. It is possible the pessary could dislodge and need to have an adjustment in size. I have discussed the case with urology and I am not at all convinced that the prolapse is the only source of her hydronephrosis and hydroureter on the right hand side. If it was only secondary to the prolapse, it seems that it should a bilateral process. I strongly suspect the stone the patient has is a contributing factor to her problem. The pessary placement will require periodic maintenance done as an outpatient in my office. The pessary is usually removed on an every 3-month basis cleaned and reinserted. As such, the patient will need to follow up with me as an outpatient in approximately 3 months or towards the end of September beginning of October. Gynecology will continue to periodically check in on her during this hospitalization. ANTHONY
[2017-08-02] MEDS ORDERED: CIPROFLOXACIN / D5W 400 MG in PREMIXED IN D5W 200 ML IV SCH (17:00)
[2017-08-02] MEDS ORDERED: PROPOFOL IV EMULSION 10 MG/ML 20 ML VIAL IV ONE ×2 (17:13→18:40)
[2017-08-02] MEDS ORDERED: LIDOCAINE HCL 2% 2 ML VIAL (20MG/ML) ONE (17:13)
[2017-08-02] MEDS ORDERED: CONRAY 30% 150ML BOTTLE ONE (17:21)
[2017-08-02] MEDS ORDERED: PHENAZOPYRIDINE HCL 200 MG TAB PO PRN (18:00)
[2017-08-02] MEDS ORDERED: PHENYLEPHRINE 100MCG/ML 5ML SYR ONE (18:39)
[2017-08-02] MEDS ORDERED: EpHEDrine SULFATE 50MG/5ML SYR ONE (18:39)
--- NOTE | 2017-08-02 18:55 | DIAGNOSTIC IMAGING REPORT ---
INTRAOPERATIVE RADIOGRAPHS CLINICAL HISTORY: Right-sided ureteral stent placement. Fluoroscopy time: 85 seconds. FINDINGS: 2 spot fluoroscopic views of the right abdomen are correlated with abdominal CT dated 08/01/2017. There is right-sided hydroureteronephrosis. The second image shows a right ureteral stent being deployed. Large right renal calculi are observed. IMPRESSION: Intraoperative images from a right ureteral stent placement procedure as above. See operative report for detailed findings. Electronically signed by: James Ramsay M.D. 08/02/2017 6:53 PM Dictated Date/Time: 08/02/2017 6:52 PM
--- NOTE | 2017-08-02 19:01 | [facility] Operative Report ---
Operative Report Operative Date Aug 02, 2017. Pre-Operative Diagnosis Right Hydronephrosis, Retention Post-Operative Diagnosis Same Procedure(s) Performed Cystoscopy with right retrograde pyleogram, right stent, right distal ureteroscopy with stent manipulation Surgeon Suresh Estimated Blood Loss Minimal Findings Severely redundant ureter with obstruction at region of UPJ. Large right stones. Purulent urine aspirated from right renal pelvis, sent for culture. Specimens Aspiration right renal pelvis for culture Drains 5x24 Stent Right Anesthesia MAC Complication(s) None Disposition Recovery Room / PACU Indications Large renal stones with questionable distal stone vs obstruction from prolapse. Sepsis. Description of Procedure Patient was consented and brought back to the operating room. Patient was placed under anesthesia in the supine position. Patient was prepped and draped in the regular sterile fashion. A time out was completed. A 30degree Cystoscope was placed into the bladder and the entire bladder was examined. The UO's were identified. The right was cannulized with a catheter and attempted to be taken up to the pelvis. In the proximal ureter near the UPJ a significant strictured area was appreciated without obvious stone. A wire was able to enter and the catheter advanced. Aspiration of fluid in renal pelvis was could to be grossly purulent. This was sent for microscopic examination. A retrograde pyelogram was completed. A wire was then placed. With the wire in place, a 5 x [24] Double J stent was placed. It was found to be in good position and the bladder was drained. Upon drainage of the bladder, the stent migrated into the right UO. Upon realizing this migration, a semirigid ureteroscope was placed with a wire once again placed. The scope was able to identify the end of the stent. This was grasped and moved down further into the bladder. A good coil was visualized. The proximal coil appeared to be located in good position. It was confirmed with fluoroscopy. With the stent in place, the bladder was emptied. The scope was removed. The patient was cleaned, aroused from anesthesia, and transferred to the pacu in stable condition having tolerated the procedure well with no complications. I was present and participated in all aspects of the procedure. The patient will be monitored in the PACU until transferred. Due to patient's age and findings of purulence within kidney would recommend close monitoring with early intervention if showing signs of sepsis. Hospitalist team and Anesthesia were alerted to these findings. I attest to the content of the Intraoperative Record and any orders documented therein. Any exceptions are noted below.
--- NOTE | 2017-08-02 19:32 | Anesthesiology Progress Note ---
Anesthesia Post Op Note Date & Time Aug 02, 2017 at 19:31 Vital Signs Pain Intensity: 0 Vital Signs Past 12 Hours Date Time Temp Pulse Resp B/P (MAP) Pulse Ox O2 Delivery O2 Flow Rate FiO2 08/02/17 19:25 80 22 115/63 98 Nasal Cannula 2 08/02/17 19:15 36.7 78 26 126/61 97 Nasal Cannula 2 08/02/17 19:05 86 20 118/55 98 Oxymask 8 08/02/17 18:55 90 22 139/63 98 Oxymask 10 08/02/17 18:49 36.6 81 20 132/68 99 Oxymask 10 08/02/17 16:15 Room Air 08/02/17 15:20 37.1 70 16 157/67 (97) 93 Room Air 08/02/17 14:00 89 92 08/02/17 11:59 37.3 70 19 132/78 (96) 92 Room Air 08/02/17 07:49 92 Room Air 08/02/17 07:47 37.2 86 22 148/78 (101) 92 Room Air Notes Mental Status: alert / awake / arousable, participated in evaluation Pt Amnestic to Procedure: Yes Nausea / Vomiting: adequately controlled Pain: adequately controlled Airway Patency, RR, SpO2: stable & adequate BP & HR: stable & adequate Hydration State: stable & adequate Anesthetic Complications: no major complications apparent
[2017-08-02] MEDS ORDERED: EpHEDrine SULFATE INJ 50 MG/ML AMP IV PRN (19:45)
[2017-08-02] MEDS ORDERED: ATROPINE SULFATE 0.1 MG/ML 5ML SYR IV PRN (19:45)
[2017-08-02] MEDS: CEFTRIAXONE SOD INJ 1000 MG in DEXTROSE 5% 50ML IV SCH (20:31)
[2017-08-03 03:32] VITALS: BP 112/57; PULSE 78; TEMP 37.2; O2SAT 94
[2017-08-03] MEDS: LEVOTHYROXINE 50 MCG TAB PO SCH (05:33)
[2017-08-03 06:00] LABS: BASO % 0.1 %; BASO ABS # 0.01 K/uL (0-0.2); EOS % 0.2 %; EOS ABS # 0.02 K/uL (0-0.5); HEMATOCRIT 32.1 % (37-47); HEMOGLOBIN 10.4 g/dL (12.0-16.0); IG# 0.03 K/uL (0.00-0.02); LYMPH % 9.1 %; LYMPH ABS # 0.74 K/uL (1.2-3.4); MEAN CELL VOLUME 96.4 fL (80-100); MEAN CORPUSCULAR HEMOGLOBIN 31.2 pg (25-34); MEAN CORPUSCULAR HGB CONC 32.4 g/dl (32-36); MONO % 9.8 %; MONO ABS # 0.79 K/uL (0.11-0.59); NEUT % 80.4 %; PLATELET COUNT 303 K/uL (130-400); RED CELL DISTRIBUTION WIDTH CV 14.1 % (11.5-14.5); RED CELL DISTRIBUTION WIDTH SD 49.6 fL (36.4-46.3); WHITE BLOOD COUNT 8.09 K/uL (4.8-10.8)
[2017-08-03 06:36] LABS: ALBUMIN 2.4 gm/dl (3.4-5.0); CREATININE 1.35 mg/dl (0.60-1.20); POTASSIUM 4.5 mmol/L (3.5-5.1)
[2017-08-03 06:45] LABS: TOTAL PROTEIN 6.2 gm/dl (6.4-8.2)
[2017-08-03 07:02] VITALS: BP 119/64; PULSE 81; TEMP 37.1; O2SAT 93
--- NOTE | 2017-08-03 07:35 | Progress Note ---
Subjective Date of Service: Aug 03, 2017. (Rebeca Chi CRNP) Subjective Pt evaluation today including: conversation w/ patient, chart review, lab review Voiding: no voiding problems 87 yo female s/p right ureteral stent placement and pessary placement. Pt denies pain this morning. She remains afebrile. Denies dysuria or incontinence. She is uncertain whether she has any gross hematuria. 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 UC&S growing alpha strep. (Rebeca Chi CRNP) Problem List Medical Problems: (1) Elevated serum creatinine Status: Acute (2) Hydronephrosis, right Status: Acute (3) Pyelonephritis Status: Acute (Rebeca Chi CRNP) Review of Systems Constitutional: No fever, No chills Respiratory: No shortness of breath Cardiac: No chest pain Abdomen: No pain, No nausea, No vomiting Heme: No abnormal bleeding/bruising (Rebeca Chi CRNP) Objective Vital Signs Date Time Temp Pulse Resp B/P (MAP) Pulse Ox O2 Delivery O2 Flow Rate FiO2 08/03/17 03:32 37.2 78 18 112/57 (75) 94 Room Air 08/02/17 23:35 Room Air 08/02/17 23:00 37.2 76 18 129/64 (85) 95 Nasal Cannula 2.0 08/02/17 22:45 37.1 08/02/17 21:45 37.2 77 16 121/73 (89) 96 Nasal Cannula 2.0 08/02/17 20:45 36.7 74 16 123/66 (85) 96 Nasal Cannula 2.0 08/02/17 20:15 36.8 78 16 122/67 (85) 96 Nasal Cannula 2.0 08/02/17 20:00 97 Nasal Cannula 2.0 08/02/17 19:45 37.0 75 18 122/71 (88) 97 Nasal Cannula 2.0 08/02/17 19:30 36.8 74 21 126/59 97 Nasal Cannula 2 08/02/17 19:25 80 22 115/63 98 Nasal Cannula 2 08/02/17 19:15 36.7 78 26 126/61 97 Nasal Cannula 2 08/02/17 19:05 86 20 118/55 98 Oxymask 8 08/02/17 18:55 90 22 139/63 98 Oxymask 10 08/02/17 18:49 36.6 81 20 132/68 99 Oxymask 10 08/02/17 16:15 Room Air 08/02/17 15:20 37.1 70 16 157/67 (97) 93 Room Air 08/02/17 14:00 89 92 08/02/17 11:59 37.3 70 19 132/78 (96) 92 Room Air 08/02/17 07:49 92 Room Air 08/02/17 07:47 37.2 86 22 148/78 (101) 92 Room Air 08/02/17 07:30 Room Air (BlackRebeca., [employer]) Physical Exam General Appearance: no apparent distress Eyes: normal inspection ENT: hearing grossly normal Neck: no JVD Respiratory/Chest: no respiratory distress, no accessory muscle use Cardiovascular: no JVD Extremities: normal inspection Neurologic/Psychiatric: alert, normal mood/affect, oriented x 3 Skin: normal color (Rebeca Chi, [employer]) Laboratory Results Last 24 Hours Test 08/03/17 05:22 White Blood Count 8.09 K/uL Red Blood Count 3.33 M/uL Hemoglobin 10.4 g/dL Hematocrit 32.1 % Mean Corpuscular Volume 96.4 fL Mean Corpuscular Hemoglobin 31.2 pg Mean Corpuscular Hemoglobin Concent 32.4 g/dl Platelet Count 303 K/uL Mean Platelet Volume 9.0 fL Neutrophils (%) (Auto) 80.4 % Lymphocytes (%) (Auto) 9.1 % Monocytes (%) (Auto) 9.8 % Eosinophils (%) (Auto) 0.2 % Basophils (%) (Auto) 0.1 % Neutrophils # (Auto) 6.50 K/uL Lymphocytes # (Auto) 0.74 K/uL Monocytes # (Auto) 0.79 K/uL Eosinophils # (Auto) 0.02 K/uL Basophils # (Auto) 0.01 K/uL RDW Standard Deviation 49.6 fL RDW Coefficient of Variation 14.1 % Immature Granulocyte % (Auto) 0.4 % Immature Granulocyte # (Auto) 0.03 K/uL Sodium Level 138 mmol/L Potassium Level 4.5 mmol/L Chloride Level 105 mmol/L Carbon Dioxide Level 25 mmol/L Anion Gap 8.0 mmol/L Blood Urea Nitrogen 27 mg/dl Creatinine 1.35 mg/dl Est Creatinine Clear Calc Drug Dose 24.3 ml/min Estimated GFR () 40.2 Estimated GFR (Non- 34.7 BUN/Creatinine Ratio 19.7 Random Glucose 67 mg/dl Calcium Level 9.0 mg/dl Magnesium Level 2.4 mg/dl Total Bilirubin 0.6 mg/dl Direct Bilirubin 0.1 mg/dl Aspartate Amino Transf (AST/SGOT) 8 U/L Alanine Aminotransferase (ALT/SGPT) 11 U/L Alkaline Phosphatase 76 U/L Total Protein 6.2 gm/dl Albumin 2.4 gm/dl (Rebeca Chi CRNP) Assessment and Plan POD #1 s/p right ureteral stent placement and right ureteroscopy; pessary placement AFVSS. Pt doing well post-op. Noted to have some hypoglycemia this morning at 67. She is currently drinking OJ and pending a recheck. Pessary management per TERRAPIN FISHER. Recommend 10-14 days of abx therapy given the purulent discharge noted in the kidney. Will plan for definitive stone management and management of UPJ stricture as an outpatient. May need PCNL given the size of the stones. Will continue to follow along with primary service. Will arrange for outpatient f/u. (Rebeca Chi CRNP) Doing well. Agree with note. POD1 s/p URS, right Stent placement with large purulent drainage from ureter. Large stones will likely need intervention. WIll need to follow up as outpatient. Continue to follow. Patient has redundant distal ureter which is dilated. Proximal ureter/UPJ has considerable strictured segment. Large stones in pelvis. Will need decompression with antibiotics. Due to age, will need to consider surgical interventions. Follow up as outpatient. (Jose Manuel Prince D.O.)
--- NOTE | 2017-08-03 08:17 | Anesthesiology Progress Note ---
Anesthesia Post Op Note Date & Time Aug 03, 2017 at 08:17 Vital Signs Pain Intensity: 0.0 Vital Signs Past 12 Hours Date Time Temp Pulse Resp B/P (MAP) Pulse Ox O2 Delivery O2 Flow Rate FiO2 08/03/17 07:02 37.1 81 16 119/64 (82) 93 Room Air 08/03/17 03:32 37.2 78 18 112/57 (75) 94 Room Air 08/02/17 23:35 Room Air 08/02/17 23:00 37.2 76 18 129/64 (85) 95 Nasal Cannula 2.0 08/02/17 22:45 37.1 08/02/17 21:45 37.2 77 16 121/73 (89) 96 Nasal Cannula 2.0 08/02/17 20:45 36.7 74 16 123/66 (85) 96 Nasal Cannula 2.0 Notes Mental Status: alert / awake / arousable, participated in evaluation Pt Amnestic to Procedure: Yes Nausea / Vomiting: adequately controlled Pain: adequately controlled Airway Patency, RR, SpO2: stable & adequate BP & HR: stable & adequate Hydration State: stable & adequate Anesthetic Complications: no major complications apparent
[2017-08-03] MEDS: METOPROLOL SUCC 50MG EXT REL TAB PO SCH (09:44)
[2017-08-03] MEDS: CEROVITE ADV FORMULA TAB PO SCH (09:44)
[2017-08-03] MEDS: ENALAPRIL MALEATE 10 MG TAB PO SCH (09:44)
[2017-08-03] MEDS: CYANOCOBALAMIN 500 MCG TAB (VIT B-12) PO SCH (09:44)
[2017-08-03] MEDS: CHOLECALCIFEROL 1000 INTER.UNIT TAB PO SCH (09:45)
[2017-08-03] MEDS: VALSARTAN 80 MG TAB PO SCH (09:45)
[2017-08-03] MEDS: ATORVASTATIN 40 MG TAB PO SCH (09:45)
[2017-08-03] MEDS: CITALOPRAM 40 MG TAB PO SCH (09:45)
[2017-08-03] MEDS: DOCUSATE SODIUM 100 MG CAP PO SCH ×2 (09:45→21:18)
--- NOTE | 2017-08-03 11:35 | Hospitalist Progress Note ---
Hospitalist Progress Note Date of Service Aug 03, 2017. Subjective Pt evaluation today including: conversation w/ patient, conversation w/ family Pt feeling well, not much incontinence to urine, had a BM, ambulated the halls yesterday. Discussed case with Urology MANUFACTURING PLANT TECHNICIAN today. Afebrile. Pt denies any abd pain, no flank pain, no CP or SOB. All Other Systems: Reviewed and Negative Objective Vital Signs Date Time Temp Pulse Resp B/P (MAP) Pulse Ox O2 Delivery O2 Flow Rate FiO2 08/03/17 07:45 Room Air 08/03/17 07:02 37.1 81 16 119/64 (82) 93 Room Air 08/03/17 03:32 37.2 78 18 112/57 (75) 94 Room Air 08/02/17 23:35 Room Air 08/02/17 23:00 37.2 76 18 129/64 (85) 95 Nasal Cannula 2.0 08/02/17 22:45 37.1 08/02/17 21:45 37.2 77 16 121/73 (89) 96 Nasal Cannula 2.0 08/02/17 20:45 36.7 74 16 123/66 (85) 96 Nasal Cannula 2.0 08/02/17 20:15 36.8 78 16 122/67 (85) 96 Nasal Cannula 2.0 08/02/17 20:00 97 Nasal Cannula 2.0 08/02/17 19:45 37.0 75 18 122/71 (88) 97 Nasal Cannula 2.0 08/02/17 19:30 36.8 74 21 126/59 97 Nasal Cannula 2 08/02/17 19:25 80 22 115/63 98 Nasal Cannula 2 08/02/17 19:15 36.7 78 26 126/61 97 Nasal Cannula 2 08/02/17 19:05 86 20 118/55 98 Oxymask 8 08/02/17 18:55 90 22 139/63 98 Oxymask 10 08/02/17 18:49 36.6 81 20 132/68 99 Oxymask 10 08/02/17 16:15 Room Air 08/02/17 15:20 37.1 70 16 157/67 (97) 93 Room Air 08/02/17 14:00 89 92 08/02/17 11:59 37.3 70 19 132/78 (96) 92 Room Air Physical Exam General Appearance: WD/WN, no apparent distress Eyes: normal inspection, sclerae normal ENT: hearing grossly normal Neck: trachea midline Respiratory/Chest: lungs clear, normal breath sounds, no respiratory distress, no accessory muscle use Cardiovascular: regular rate, rhythm (with occasional extra beats), no edema, no gallop, no murmur Abdomen: normal bowel sounds, non tender, soft, no organomegaly, no pulsatile mass, + pertinent finding (no cystocele from vagina today) Extremities: non-tender, normal inspection, no pedal edema, no calf tenderness Neurologic/Psychiatric: alert, normal mood/affect, oriented x 3 Skin: normal color, warm/dry, no rash Laboratory Results Last 24 Hours Test 08/03/17 05:22 08/03/17 07:20 08/03/17 07:54 White Blood Count 8.09 K/uL Red Blood Count 3.33 M/uL Hemoglobin 10.4 g/dL Hematocrit 32.1 % Mean Corpuscular Volume 96.4 fL Mean Corpuscular Hemoglobin 31.2 pg Mean Corpuscular Hemoglobin Concent 32.4 g/dl Platelet Count 303 K/uL Mean Platelet Volume 9.0 fL Neutrophils (%) (Auto) 80.4 % Lymphocytes (%) (Auto) 9.1 % Monocytes (%) (Auto) 9.8 % Eosinophils (%) (Auto) 0.2 % Basophils (%) (Auto) 0.1 % Neutrophils # (Auto) 6.50 K/uL Lymphocytes # (Auto) 0.74 K/uL Monocytes # (Auto) 0.79 K/uL Eosinophils # (Auto) 0.02 K/uL Basophils # (Auto) 0.01 K/uL RDW Standard Deviation 49.6 fL RDW Coefficient of Variation 14.1 % Immature Granulocyte % (Auto) 0.4 % Immature Granulocyte # (Auto) 0.03 K/uL Sodium Level 138 mmol/L Potassium Level 4.5 mmol/L Chloride Level 105 mmol/L Carbon Dioxide Level 25 mmol/L Anion Gap 8.0 mmol/L Blood Urea Nitrogen 27 mg/dl Creatinine 1.35 mg/dl Est Creatinine Clear Calc Drug Dose 24.3 ml/min Estimated GFR () 40.2 Estimated GFR (Non- 34.7 BUN/Creatinine Ratio 19.7 Random Glucose 67 mg/dl Calcium Level 9.0 mg/dl Magnesium Level 2.4 mg/dl Total Bilirubin 0.6 mg/dl Direct Bilirubin 0.1 mg/dl Aspartate Amino Transf (AST/SGOT) 8 U/L Alanine Aminotransferase (ALT/SGPT) 11 U/L Alkaline Phosphatase 76 U/L Total Protein 6.2 gm/dl Albumin 2.4 gm/dl Bedside Glucose 68 mg/dl 117 mg/dl Assessment and Plan This patient is an 87-year-old female with a history of grade 4 cystocele, hypertension, colon cancer, hyperlipidemia, nephrolithiasis, depression with anxiety disorder, hypothyroidism, anemia, and macular degeneration, who presented to the ER with an episode of gross hematuria and bilateral flank pain [address] abdomen and pelvis which showed severe right-sided hydronephrosis and hydroureter, along with perinephric stranding on the right. Her UA was grossly abnormal for infection. There is difficulty in placement of her Damon catheter due to her large cystocele, but the ER M.D. was able to reduce the cystocele in place the Damon catheter. Urology recommended COREMAKING SUPERVISOR consultation for pessary placement, however the patient's daughter reports she has tried that multiple times in the past and they have all fallen out. She does not meet any criteria for sepsis at this time, but her creatinine was elevated at 1.55 on admission from her baseline of 1.0. She is admitted for severe right-sided hydronephrosis and hydroureter, pyelonephritis, and acute kidney injury. Right-sided severe hydronephrosis/hydroureter/acute pyelonephritis/bladder outlet obstruction and cystocele/large nephrolithiasis/gross hematuria-had only mild fullness of the bilateral kidneys but no definite hydronephrosis on CT in 2013. Had failed pessary placement in the past. Now with very large stone on the right, with hydronephrosis, and acute kidney injury. No evidence of sepsis at this time. With Grade 4 cystocele. Rad report says cannot visualize distal ureters due to prolapse. COREMAKING SUPERVISOR placed flexible pessary on 08/02 with success. Urology took her for stent placement of right ureter on 08/02 with findings of Rt UPJ stricture and purulent urine aspirated from kidney, also with kinked ureter/ tortuosity more distal due to cystocele. Damon discontinued. -was on Cipro, changed to Rocephin for alpha Strep in Ur cx on 08/02 -Urine aspirate from kidney now with GPC,GPR,and GNC on Gram stain, ID pending -Follow urine culture result -Follow CBC given mild leukocytosis on admission-resolved -Follow PRP to trend creatinine and electrolytes -will need Urology f/u in 1 week, will eventually need more definitive management of very large stone as per Urology -will need pessary management with COREMAKING SUPERVISOR q3 months for removal/cleaning/ replacement Acute kidney injury-baseline creatinine is 1.0-1.1, creatinine on admission was 1.55--> was down to 1.21-->1.35 today Secondary to ureteral stricture and kinked ureter from cystocele causing severe hydronephrosis on the right -Hydrated with IV fluids, now discontinued -will now hold ACEI and ARB given film maker rise today, consider stopping ARB as no real benefit for being on ACEI and ARB -Follow PRP Hypertension/hyperlipidemia-stable this time -Continue Toprol, Lipitor -Holding home aspirin given gross hematuria -hold ACEI,ARB as above -IV hydralazone prn high BP Depression and anxiety disorder-stable -Continue Celexa Hypothyroidism-TSH was normal at 2.6 in May 2017 -Continue home dose of levothyroxine 50 mcg by mouth daily Vitamin B12 deficiency/vitamin D deficiency-stable -Continue home doses of B12 and vitamin D Prophylaxis-SCDs only given gross hematuria, recent stenting Encouraged ambulation today Disposition-to home with home health in 1 day after Ureter cx results returned DO NOT RESUSCITATE as discussed with patient with her daughter at the bedside
[2017-08-03] MEDS ORDERED: HydrALAZINE HCL 20 MG/ML VIAL IV. PRN (11:45)
[2017-08-03 15:37] VITALS: BP 114/67; PULSE 83; TEMP 36.9; O2SAT 91
[2017-08-03] MEDS: CEFTRIAXONE SOD INJ 1000 MG in DEXTROSE 5% 50ML IV SCH (21:18)
[2017-08-03 22:55] VITALS: BP 114/60; PULSE 74; TEMP 37.1; O2SAT 92
[2017-08-04] MEDS: LEVOTHYROXINE 50 MCG TAB PO SCH (05:55)
[2017-08-04 06:54] LABS: BASO % 0.3 %; BASO ABS # 0.02 K/uL (0-0.2); EOS % 0.9 %; EOS ABS # 0.06 K/uL (0-0.5); HEMATOCRIT 32.5 % (37-47); HEMOGLOBIN 10.3 g/dL (12.0-16.0); IG# 0.02 K/uL (0.00-0.02); LYMPH % 11.2 %; LYMPH ABS # 0.75 K/uL (1.2-3.4); MEAN CELL VOLUME 95.3 fL (80-100); MEAN CORPUSCULAR HEMOGLOBIN 30.2 pg (25-34); MEAN CORPUSCULAR HGB CONC 31.7 g/dl (32-36); MONO % 11.8 %; MONO ABS # 0.79 K/uL (0.11-0.59); NEUT % 75.5 %; NEUT ABS # 5.08 K/uL (1.4-6.5); PLATELET COUNT 310 K/uL (130-400); RED CELL DISTRIBUTION WIDTH SD 48.6 fL (36.4-46.3); WHITE BLOOD COUNT 6.72 K/uL (4.8-10.8)
[2017-08-04 07:21] LABS: CALCIUM 8.6 mg/dl (8.5-10.1); CREATININE 1.32 mg/dl (0.60-1.20); POTASSIUM 4.4 mmol/L (3.5-5.1)
[2017-08-04 08:11] VITALS: BP 120/72; PULSE 73; TEMP 37; O2SAT 91
[2017-08-04 08:19] VITALS: O2SAT 91
--- NOTE | 2017-08-04 08:36 | Progress Note ---
Subjective Date of Service: Aug 04, 2017. Subjective Pt evaluation today including: conversation w/ patient, chart review, lab review Voiding: incontinence 87 yo female s/p right ureteral stent placement and pessary placement. Pt denies pain this morning. Denies dysuria or hematuria. She reports that she does have incontinence. Uncertain if she is soaking any pads. Preliminary culture from the kidney growing alpha strep as well. She remains afebrile. Problem List Medical Problems: (1) Elevated serum creatinine Status: Acute (2) Hydronephrosis, right Status: Acute (3) Pyelonephritis Status: Acute Review of Systems Constitutional: No fever, No chills Respiratory: No shortness of breath Cardiac: No chest pain Abdomen: No pain, No nausea, No vomiting Female : + incontinence, No dysuria, No hematuria Heme: No abnormal bleeding/bruising Objective Vital Signs Date Time Temp Pulse Resp B/P (MAP) Pulse Ox O2 Delivery O2 Flow Rate FiO2 08/04/17 08:19 91 Room Air 08/04/17 08:11 37.0 73 16 120/72 (88) 91 Room Air 08/03/17 23:40 Room Air 08/03/17 22:55 37.1 74 16 114/60 (78) 92 Room Air 08/03/17 16:50 Room Air 08/03/17 15:37 36.9 83 16 114/67 (83) 91 Room Air Physical Exam General Appearance: no apparent distress Eyes: normal inspection ENT: hearing grossly normal Neck: no JVD Respiratory/Chest: no respiratory distress, no accessory muscle use Cardiovascular: no JVD Extremities: normal inspection Neurologic/Psychiatric: alert, normal mood/affect, oriented x 3 Skin: normal color Laboratory Results Last 24 Hours Test 08/03/17 12:03 08/04/17 06:27 Bedside Glucose 116 mg/dl White Blood Count 6.72 K/uL Red Blood Count 3.41 M/uL Hemoglobin 10.3 g/dL Hematocrit 32.5 % Mean Corpuscular Volume 95.3 fL Mean Corpuscular Hemoglobin 30.2 pg Mean Corpuscular Hemoglobin Concent 31.7 g/dl Platelet Count 310 K/uL Mean Platelet Volume 9.0 fL Neutrophils (%) (Auto) 75.5 % Lymphocytes (%) (Auto) 11.2 % Monocytes (%) (Auto) 11.8 % Eosinophils (%) (Auto) 0.9 % Basophils (%) (Auto) 0.3 % Neutrophils # (Auto) 5.08 K/uL Lymphocytes # (Auto) 0.75 K/uL Monocytes # (Auto) 0.79 K/uL Eosinophils # (Auto) 0.06 K/uL Basophils # (Auto) 0.02 K/uL RDW Standard Deviation 48.6 fL RDW Coefficient of Variation 14.0 % Immature Granulocyte % (Auto) 0.3 % Immature Granulocyte # (Auto) 0.02 K/uL Sodium Level 138 mmol/L Potassium Level 4.4 mmol/L Chloride Level 106 mmol/L Carbon Dioxide Level 26 mmol/L Anion Gap 6.0 mmol/L Blood Urea Nitrogen 29 mg/dl Creatinine 1.32 mg/dl Est Creatinine Clear Calc Drug Dose 24.9 ml/min Estimated GFR () 41.4 Estimated GFR (Non- 35.7 BUN/Creatinine Ratio 22.2 Random Glucose 107 mg/dl Calcium Level 8.6 mg/dl Assessment and Plan POD #2 s/p right ureteral stent placement and right ureteroscopy; pessary placement AFVSS. Pt doing well post-op. Pessary management per TREASURY MANAGEMENT SALES CONSULTANT. Recommend 10-14 days of abx therapy given the purulent discharge noted in the kidney. Bactrim vs Cipro? Will plan for definitive stone management and management of UPJ stricture as an outpatient. May need PCNL given the size of the stones. No further management at this time. Recall PRN issues. Will arrange for outpatient f/u with Dr. Prince in 1 week to discuss stone management.
[2017-08-04] MEDS: CYANOCOBALAMIN 500 MCG TAB (VIT B-12) PO SCH (09:23)
[2017-08-04] MEDS: METOPROLOL SUCC 50MG EXT REL TAB PO SCH (09:23)
[2017-08-04] MEDS: CITALOPRAM 40 MG TAB PO SCH (09:23)
[2017-08-04] MEDS: CEROVITE ADV FORMULA TAB PO SCH (09:24)
[2017-08-04] MEDS: DOCUSATE SODIUM 100 MG CAP PO SCH (09:24)
[2017-08-04] MEDS: ATORVASTATIN 40 MG TAB PO SCH (09:25)
[2017-08-04] MEDS: CHOLECALCIFEROL 1000 INTER.UNIT TAB PO SCH (09:25)
[2017-08-04] MEDS ORDERED: PHEN-1043 PO (11:36)
[2017-08-04] MEDS ORDERED: LEVO-17 PO (11:36)
--- NOTE | 2017-08-04 11:58 | Discharge Instructions ---
Discharge Instructions Date of Service Aug 04, 2017. Admission Reason for Admission: Hydronephrosis, Acute Pyelonephritis Discharge Discharge Diagnosis / Problem: Hydronephrosis, Acute Pyelonephritis Discharge Goals Goal(s): Improve disease control, Diagnostic testing, Therapeutic intervention Activity Recommendations Activity Limitations: resume your previous activity Exercise/Sports Limitations: gradually increase as tolerated Shower/Bathe: no limitations . Instructions / Follow-Up Instructions / Follow-Up You were admitted with a kidney infection and a blocked ureter due to your protruding bladder prolapse. This was treated with placing a pessary to hold your bladder in. You also had a stent placed in your ureter to drain your urine and infection. You have a large kidney stone on the right side that may eventually require some sort of procedure. It is very important that you take the antibiotic prescribed to you every day until it is gone. Urology will arrange follow up for you within 1 week. You should also follow up with [employer] in 3 months to remove and clean your pessary. Please also see your PCP within 1-2 weeks. Current Hospital Diet Patient's current hospital diet: AHA Diet (Heart Healthy) Discharge Diet Recommended Diet: AHA Diet (Heart Healthy) Procedures Procedures Performed: Cystoscopy with right retrograde pyleogram, right stent, right distal ureteroscopy with stent manipulation Pessary placement CT abdomen/pelvis Chest xray Pending Studies Studies pending at discharge: yes List of pending studies: Final urine culture Laboratory Results Last 24 Hours Test 08/03/17 12:03 08/04/17 06:27 Bedside Glucose 116 mg/dl White Blood Count 6.72 K/uL Red Blood Count 3.41 M/uL Hemoglobin 10.3 g/dL Hematocrit 32.5 % Mean Corpuscular Volume 95.3 fL Mean Corpuscular Hemoglobin 30.2 pg Mean Corpuscular Hemoglobin Concent 31.7 g/dl Platelet Count 310 K/uL Mean Platelet Volume 9.0 fL Neutrophils (%) (Auto) 75.5 % Lymphocytes (%) (Auto) 11.2 % Monocytes (%) (Auto) 11.8 % Eosinophils (%) (Auto) 0.9 % Basophils (%) (Auto) 0.3 % Neutrophils # (Auto) 5.08 K/uL Lymphocytes # (Auto) 0.75 K/uL Monocytes # (Auto) 0.79 K/uL Eosinophils # (Auto) 0.06 K/uL Basophils # (Auto) 0.02 K/uL RDW Standard Deviation 48.6 fL RDW Coefficient of Variation 14.0 % Immature Granulocyte % (Auto) 0.3 % Immature Granulocyte # (Auto) 0.02 K/uL Sodium Level 138 mmol/L Potassium Level 4.4 mmol/L Chloride Level 106 mmol/L Carbon Dioxide Level 26 mmol/L Anion Gap 6.0 mmol/L Blood Urea Nitrogen 29 mg/dl Creatinine 1.32 mg/dl Est Creatinine Clear Calc Drug Dose 24.9 ml/min Estimated GFR () 41.4 Estimated GFR (Non- 35.7 BUN/Creatinine Ratio 22.2 Random Glucose 107 mg/dl Calcium Level 8.6 mg/dl Hemoglobin A1c Test 07/14/17 10:44 Range/Units Estimated Average Glucose 114 mg/dl Hemoglobin A1c 5.6 4.5-5.6 % Lipid Panel Test 06/15/17 08:45 Range/Units Triglycerides Level 68 0-150 mg/dl Cholesterol Level 136 0-200 mg/dl HDL Cholesterol 63 mg/dl Cholesterol/HDL Ratio 2.2 LDL Cholesterol, Calculated 59 mg/dl Medical Emergencies . Who to Call and When: Medical Emergencies: If at any time you feel your situation is an emergency, please call 911 immediately. . Non-Emergent Contact Non-Emergency issues call your: Primary Care Provider, Urologist Call Non-Emergent contact if: you have a fever, temperature is above 100.5, your pain is not controlled, your pain is worsening, your pain is unusual for you, your pain is concerning you, you have any medication questions . . "Provider Documentation" section prepared by Josephine Cespedes. . VTE Core Measure Inpt VTE Proph given/why not?: SCD's
[2017-08-04] MEDS ORDERED: LEVOFLOXACIN 500 MG TAB PO ONE (12:00)
--- NOTE | 2017-08-04 12:09 | Discharge Summary ---
Discharge Summary Date of Service Aug 04, 2017. Discharge Summary Admission Date: Aug 01, 2017 at 18:06 Discharge Date: Aug 04, 2017 Discharge Disposition: Home with services Principal Diagnosis: Acute pyelonephritis, Right hydronephrosis Problems/Secondary Diagnoses: MONI Gross hematuria Grade 4 cystocele Hypertension H/o colon cancer Hyperlipidemia Nephrolithiasis Depression with anxiety Hypothyroidism Anemia Macular degeneration Nephrolithiasis Vitamin B12 deficiency Vitamin D deficiency Immunizations: Have You Had Influenza Vaccine: No History of Tetanus Vaccine?: Unknown History of Pneumococcal: No History of Hepatitis B Vaccine: No Procedures: Cystoscopy with right retrograde pyleogram, right stent, right distal ureteroscopy with stent manipulation Pessary placement CT abdomen/pelvis Chest xray Consultations: Urology Gynecology Medication Reconciliation New Medications: Levofloxacin (Levaquin) 250 Mg Tab 250 MG PO DAILY for 11 Days, #11 TAB Next dose due 08/05/17 Phenazopyridine HCl (Phenazopyridine HCl) 200 Mg Tab 200 MG PO TID PRN for Bladder pain for 3 Days, #9 TAB Continued Medications: Aspirin (Aspirin Ec) 81 Mg Tab 81 MG PO DAILY Atorvastatin (Lipitor) 40 Mg Tab 40 MG PO DAILY, TAB Cholecalciferol (Vitamin D3) 1,000 Unit Tab 1 TAB PO DAILY, TAB Citalopram Hydrobromide (Celexa) 40 Mg Tab 40 MG PO DAILY, TAB Cyanocobalamin (Vitamin B-12) 1,000 Mcg Tab 1000 MCG PO DAILY, TAB Docusate Sodium (Colace) 100 Mg Cap 1 CAP PO BID, CAP Levothyroxine Sodium (Levothyroxine Sodium) 50 Mcg Tab 1 TAB PO DAILY, TAB Metoprolol Succ (Toprol Xl) (Toprol-Xl) 50 Mg Tabcr 50 MG PO DAILY, TAB Multiple Vitamins W/ Minerals (Preservision Areds 2) 1 Cap Cap 2 CAP PO DAILY Quinapril Hcl (Accupril) 40 Mg Tab 40 MG PO DAILY, TAB Valsartan (Diovan) 80 Mg Tab 80 MG PO DAILY, TAB Discharge Exam Pt feeling very well, no CP or SOB, no abd pain or flank pain. She is grossly incontinent to urine as per RN, and this was to be expected after pessary placement due to pelvis prolapse. Alpha Strep again growing in Urine culture without sensitivities to follow. Is ready for discharge. Remains afebrile. Physical Exam Vitals reviewed General Appearance: WD/WN, no apparent distress Eyes: normal inspection, sclerae normal ENT: hearing grossly normal Neck: trachea midline Respiratory/Chest: lungs clear, normal breath sounds, no respiratory distress, no accessory muscle use Cardiovascular: regular rate, rhythm (with occasional extra beats), no edema, no gallop, no murmur Abdomen: normal bowel sounds, non tender, soft, no organomegaly, no pulsatile mass Extremities: non-tender, normal inspection, no pedal edema, no calf tenderness Neurologic/Psychiatric: alert, normal mood/affect, oriented x 3 Skin: normal color, warm/dry, no rash Review of Systems: Constitutional: No fever, No chills Eyes: No problem reported ENT: No problem reported Respiratory: No problem reported Cardiovascular: No problem reported Abdomen: No problem reported Musculoskeletal: No problem reported Genitourinary - Female: + urinary incontinence Neurologic: No problem reported Psychiatric: No problem reported Endocrine: No problem reported Hematologic / Lymphatic: No problem reported Integumentary: No problem reported Hospital Course This patient is an 87-year-old female with a history of grade 4 cystocele, hypertension, colon cancer, hyperlipidemia, nephrolithiasis, depression with anxiety disorder, hypothyroidism, anemia, and macular degeneration, who presented to the ER with an episode of gross hematuria and bilateral flank pain [address] abdomen and pelvis which showed severe right-sided hydronephrosis and hydroureter, along with perinephric stranding on the right. Her UA was grossly abnormal for infection. There is difficulty in placement of her Damon catheter due to her large cystocele, but the ER M.D. was able to reduce the cystocele in place the Damon catheter. Urology recommended HIDE AND SKIN PROCESSING WORKER consultation for pessary placement, however the patient's daughter reports she has tried that multiple times in the past and they have all fallen out. She does not meet any criteria for sepsis at this time, but her creatinine was elevated at 1.55 on admission from her baseline of 1.0. She is admitted for severe right-sided hydronephrosis and hydroureter, pyelonephritis, and acute kidney injury. Right-sided severe hydronephrosis/hydroureter/acute pyelonephritis/bladder outlet obstruction and cystocele/large nephrolithiasis/gross hematuria-had only mild fullness of the bilateral kidneys but no definite hydronephrosis on CT in 2013. Had failed pessary placement in the past. Now with very large stone on the right, with hydronephrosis, and acute kidney injury. No evidence of sepsis. With Grade 4 cystocele. Rad report says cannot visualize distal ureters due to prolapse. HIDE AND SKIN PROCESSING WORKER placed flexible pessary on 08/02 with success. Urology took her for stent placement of right ureter on 08/02 with findings of Rt UPJ stricture and purulent urine aspirated from kidney, also with kinked ureter/ tortuosity more distal due to cystocele. Damon discontinued. -was on Cipro, changed to Rocephin for alpha Strep in Ur cx on 08/02, and recurrent alpha Strep on urine culture obtained from ureteroscope--> and will change to renally dosed po Levaquin on discharge to complete total 14 day course for acute pyelonephritis -mild leukocytosis on admission-resolved -Follow PRP to trend creatinine and electrolytes as na outpt, microarray analyst on day of discharge 1.32 and stable -will need Urology f/u in 1 week, will eventually need more definitive management of very large stone as per Urology -will need pessary management with HIDE AND SKIN PROCESSING WORKER q3 months for removal/cleaning/ replacement Acute kidney injury-baseline creatinine is 1.0-1.1, creatinine on admission was 1.55--> was down to 1.21-->1.32 today Secondary to ureteral stricture and kinked ureter from cystocele causing severe hydronephrosis on the right -Hydrated with IV fluids, now discontinued -held ACEI and ARB given microarray analyst rise, consider stopping ARB as no real benefit for being on ACEI and ARB--> restarted on discharge but will defer to PCP to stop one or the other as outpt -Follow renal function as outpatient Hypertension/hyperlipidemia-stable this time -Continue Toprol, Lipitor -ok to restart home aspirin as gross hematuria has resolved -restart ACEI and ARB as above Depression and anxiety disorder-stable -Continue Celexa Hypothyroidism-TSH was normal at 2.6 in May 2017 -Continue home dose of levothyroxine 50 mcg by mouth daily Vitamin B12 deficiency/vitamin D deficiency-stable -Continue home doses of B12 and vitamin D Stable for discharge to home today with Home Health arranged by Case Management Total Time Spent: Greater than 30 minutes This includes examination of the patient, discharge planning, medication reconciliation, and communication with other providers. Discharge Instructions Please refer to the electronic Patient Visit Report (Discharge Instructions) for additional information. Follow-Up Urology within 1 week PCP within 1 week Follow BMP with PCP in 1 week Additional Copies To Jose Manuel Prince D.O.; Chasity Jaramillo MD
[2017-08-04 13:25] VITALS: BP 120/72; PULSE 73; TEMP 37; O2SAT 91
== END 2017-08-04 14:35 | disposition home health service (06) | DRG 694 ==
LOC: C.EDB 12:48 → C.MSN 18:06 → ENRESERV 18:28
PROVIDERS: ADMIT Family Medicine; ATTEND Family Medicine
PROC: 0TH Urinary System, Insertion (ICD-10-PCS; principal; 2017-08-02 15:45)
DX: N13.2 Hydronephrosis with renal and ureteral calculous obstruction (principal); N10 Acute pyelonephritis; R31.0 Gross hematuria; Z66 Do not resuscitate; N17.9 Acute kidney failure, unspecified; E78.00 Pure hypercholesterolemia, unspecified; I10 Essential (primary) hypertension; F32.9 Major depressive disorder, single episode, unspecified; F41.9 Anxiety disorder, unspecified; H35.30 Unspecified macular degeneration; E53.8 Deficiency of other specified B group vitamins; E55.9 Vitamin D deficiency, unspecified; N81.3 Complete uterovaginal prolapse; Z85.038 Personal history of other malignant neoplasm of large intestine; Z79.82 Long term (current) use of aspirin

== ENCOUNTER → 2017-08-20 | Outpatient (CLI) | payer BC ==
[~2017-08-20] MED LIST changes: +ASPI81TA28 PO; +ATOR-24 PO; +CHOL1000 PO; +CITA40TA12 PO; -CITA40TA4; +CYAN10005 PO; -CYAN10005 SL; +DOCU-94 PO; -LEVO25TA5 PO; +LEVO50TA6 PO; -LPT40 PO; +METO50TA7 PO; -MRLP120 PO; -MULT-190 PO; +MULT60CA PO; +PHEN-1043 PO; -PPTBS PO; -TPRSR/50 PO
[2017-08-20 16:57] LABS: BLOOD UREA NITROGEN 20 mg/dl (7-18); CARBON DIOXIDE 32 mmol/L (21-32); CREATININE 1.18 mg/dl (0.60-1.20); GLUCOSE 98 mg/dl (70-99); POTASSIUM 4.3 mmol/L (3.5-5.1); SODIUM 141 mmol/L (136-145)
== END | disposition home or self-care (01) ==
LOC: C.LABBC 14:02
PROVIDERS: ATTEND Family Medicine
DX: N17.9 Acute kidney failure, unspecified (principal)

== ENCOUNTER 2017-10-11 12:05 | Day surgery (SDC) | payer BC ==
[2017-09-27 09:30] VITALS: BMI 21.0
--- NOTE | 2017-09-27 10:02 | PAT Medication Instructions ---
Service Date Sep 27, 2017. Current Home Medication List Aspirin (Aspirin Ec), 81 MG PO QAM Atorvastatin (Lipitor), 40 MG PO QPM Cholecalciferol (Vitamin D3), 1 TAB PO QAM Citalopram Hydrobromide (Celexa), 40 MG PO QAM Cyanocobalamin (Vitamin B-12), 1,000 MCG PO QAM Docusate Sodium (Colace), 1 CAP PO BID Levothyroxine Sodium (Levothyroxine Sodium), 1 TAB PO QAM Metoprolol Succ (Toprol Xl) (Toprol-Xl), 50 MG PO QAM Multiple Vitamins W/ Minerals (Preservision Areds 2), 1 CAP PO BID Quinapril Hcl (Accupril), 40 MG PO QAM Valsartan (Diovan), 80 MG PO QAM Medication Instructions For Your Scheduled Surgery - Hold the following medications 7-10 days prior to surgery per your surgeon's instructions: Aspirin (Aspirin Ec), 81 MG PO QAM - Hold the following medications the morning of surgery: Cholecalciferol (Vitamin D3), 1 TAB PO QAM Cyanocobalamin (Vitamin B-12), 1,000 MCG PO QAM Docusate Sodium (Colace), 1 CAP PO BID Multiple Vitamins W/ Minerals (Preservision Areds 2), 1 CAP PO BID Quinapril Hcl (Accupril), 40 MG PO QAM Valsartan (Diovan), 80 MG PO QAM - Take the following medications the morning of surgery with a sip of water: Citalopram Hydrobromide (Celexa), 40 MG PO QAM Levothyroxine Sodium (Levothyroxine Sodium), 1 TAB PO QAM Metoprolol Succ (Toprol Xl) (Toprol-Xl), 50 MG PO QAM - Take the following medications as scheduled the night before surgery: Atorvastatin (Lipitor), 40 MG PO QPM Docusate Sodium (Colace), 1 CAP PO BID Multiple Vitamins W/ Minerals (Preservision Areds 2), 1 CAP PO BID If you have any questions please call us at [phone] or [phone] or [phone]
[2017-09-27 10:33] LABS: BASO % 0.6 %; BASO ABS # 0.04 K/uL (0-0.2); EOS % 0.5 %; EOS ABS # 0.03 K/uL (0-0.5); HEMATOCRIT 31.2 % (37-47); HEMOGLOBIN 10.3 g/dL (12.0-16.0); IG# 0.01 K/uL (0.00-0.02); LYMPH % 11.6 %; LYMPH ABS # 0.75 K/uL (1.2-3.4); MEAN CELL VOLUME 95.7 fL (80-100); MEAN CORPUSCULAR HEMOGLOBIN 31.6 pg (25-34); MEAN PLATELET VOLUME 9.1 fL (7.4-10.4); MONO % 8.8 %; MONO ABS # 0.57 K/uL (0.11-0.59); NEUT % 78.3 %; NEUT ABS # 5.07 K/uL (1.4-6.5); PLATELET COUNT 257 K/uL (130-400); RED CELL DISTRIBUTION WIDTH CV 14.9 % (11.5-14.5); RED CELL DISTRIBUTION WIDTH SD 52.7 fL (36.4-46.3); WHITE BLOOD COUNT 6.47 K/uL (4.8-10.8)
[2017-09-27 11:24] LABS: CALCIUM 8.8 mg/dl (8.5-10.1); CREATININE 1.09 mg/dl (0.60-1.20); POTASSIUM 4.5 mmol/L (3.5-5.1)
[~2017-10-11] VITALS: Ht 162.6 cm; Wt 55.7 kg
[~2017-10-11 12:05] MED LIST changes: +CIPROFLOXACIN / D5W 400 MG IV SCH; +LACTATED RINGER'S 1000ML 1,000 ML IV SCH; -METO50TA7 PO; +METO50TA8 PO; -PHEN-1043 PO
[2017-10-11] MEDS ORDERED: PHENYLEPHRINE 100MCG/ML 5ML SYR ONE (12:21)
[2017-10-11] MEDS ORDERED: PROPOFOL IV EMULSION 10 MG/ML 20 ML VIAL IV ONE (12:21)
[2017-10-11] MEDS ORDERED: ONDANSETRON INJ 2 MG/ML 2 ML VIAL ONE (12:21)
[2017-10-11] MEDS ORDERED: LIDOCAINE HCL 2% 2 ML VIAL (20MG/ML) ONE (12:21)
[2017-10-11] MEDS ORDERED: EpHEDrine SULFATE 50MG/5ML SYR ONE (12:21)
[2017-10-11] MEDS ORDERED: FENTANYL CITRATE INJ 50 MCG/1 ML 2 ML VIAL ONE (12:22)
[2017-10-11] MEDS ORDERED: MULT-190 PO (12:36)
[2017-10-11 12:40] VITALS: BP 167/68; PULSE 58; TEMP 36.2; O2SAT 93; Ht 162.6 cm; Wt 55.7 kg
--- NOTE | 2017-10-11 13:27 | History & Physical Bridge Note ---
H&P Re-Evaluation Bridge Note: I have examined the patient, reviewed the History & Physical and in the interval since the performance of the History & Physical I have noted the following changes of clinical significance: No changes noted
[2017-10-11] MEDS ORDERED: PHEN-775 PO (13:30)
[2017-10-11] MEDS ORDERED: CEPH500C PO (13:30)
--- NOTE | 2017-10-11 13:31 | Discharge Instructions ---
Discharge Instructions Date of Service Oct 11, 2017. Admission Reason for Admission: Hydronephrosis Discharge Discharge Diagnosis / Problem: Stone, Right Discharge Goals Goal(s): Decrease discomfort, Improve function Activity Recommendations Activity Limitations: resume your previous activity Exercise/Sports Limitations: none Shower/Bathe: no limitations . Instructions / Follow-Up Instructions / Follow-Up May have blood in urine. May have pelvic pain or discomfort. Call if any fevers or chills. Current Hospital Diet Patient's current hospital diet: Discharge Diet Recommended Diet: Regular Diet Procedures Procedures Performed: Cystoscopy and stent exchange. right. Pending Studies Studies pending at discharge: no Laboratory Results Hemoglobin A1c Test 07/14/17 10:44 Range/Units Estimated Average Glucose 114 mg/dl Hemoglobin A1c 5.6 4.5-5.6 % Medical Emergencies . Who to Call and When: Medical Emergencies: If at any time you feel your situation is an emergency, please call 911 immediately. . Non-Emergent Contact Non-Emergency issues call your: Primary Care Provider, Urologist Call Non-Emergent contact if: you have a fever, temperature is above 101, temperature is above 101.5, your pain is not controlled, your pain is worsening . . "Provider Documentation" section prepared by Jose Manuel Prince. .
[2017-10-11] MEDS ORDERED: OXYCODONE/ACETAMINOPHEN 7.5-325 TAB PO PRN (13:45)
[2017-10-11] MEDS ORDERED: FENTANYL CITRATE INJ 50 MCG/1 ML 2 ML VIAL IV PRN (14:15)
[2017-10-11] MEDS ORDERED: ONDANSETRON INJ 2 MG/ML 2 ML VIAL IV PRN (14:15)
[2017-10-11] MEDS ORDERED: ATROPINE SULFATE 0.1 MG/ML 5ML SYR IV PRN (14:15)
[2017-10-11] MEDS ORDERED: Cysto-Conray II 17.2% 250ML BOTTLE ONE (14:30)
--- NOTE | 2017-10-11 15:00 | [facility] Operative Report ---
Operative Report Operative Date Oct 11, 2017. Pre-Operative Diagnosis Stone, right. [facility] Post-Operative Diagnosis Same Procedure(s) Performed Cystoscopy with Right stent exchange and retrograde pyelogram. Surgeon Suresh Estimated Blood Loss Minimal Findings Obstructing stone. Bladder prolapse. Drains 6 x26 Double J on Right. Anesthesia Type MAC Complication(s) none Disposition Recovery Room / PACU Indications Obstructing large stone. Patient is going to have stent exchanges and monitoring of stone. Currently holding off on definitive treatment. Risks and benefits discussed at length. Description of Procedure Patient was consented and brought back to the operating room. Patient was placed under anesthesia in the supine position and moved to the dorsal lithotomy position. Patient was prepped and draped in the regular sterile fashion. A time out was completed. A 30degree Cystoscope was placed into the bladder and the entire bladder was examined. The UO's were identified. The right stent was visualized and grasped and partially removed. A wire was placed. A dual lumen catheter was placed and a retrograde pyelogram was completed. The catheter was removed. With the wire in place, a 6 x [26] Double J stent was placed. It was confirmed with fluoroscopy. With the stent in place , the bladder was emptied. The scope was removed. The patient was cleaned, aroused from anesthesia, and transferred to the pacu in stable condition having tolerated the procedure well with no complications. I was present and participated in all aspects of the procedure. I attest to the content of the Intraoperative Record and any orders documented therein. Any exceptions are noted below.
--- NOTE | 2017-10-11 15:16 | DIAGNOSTIC IMAGING REPORT ---
RETROGRADE INCLUDES KUB CLINICAL HISTORY: 87 years-old Female presenting with RIGHT CYSTOSCOPY, RETROGRADE, STENT. TECHNIQUE: 7 fluoroscopic spot image(s) obtained as part of an intraoperative procedure. COMPARISON: 08/02/2017. FINDINGS/IMPRESSION: A guidewire was passed into the right renal collecting system. 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 The right renal collecting system was dilated. A right ureteral stent was placed. Residual contrast noted in the dilated right renal collecting system at the conclusion of the procedure. Please see surgical report for further details. Dose area product (mGy.cm^2): 1444.2. Fluoroscopy time: 48.4 seconds. Number of fluoroscopic spot images: 7. Electronically signed by: Moe Khan M.D. 10/11/2017 3:15 PM Dictated Date/Time: 10/11/2017 3:14 PM
--- NOTE | 2017-10-11 15:34 | Anesthesiology Progress Note ---
Anesthesia Post Op Note Date & Time Oct 11, 2017 at 15:34 Vital Signs Pain Intensity: 0 Vital Signs Past 12 Hours Date Time Temp Pulse Resp B/P (MAP) Pulse Ox O2 Delivery O2 Flow Rate FiO2 10/11/17 15:25 36.3 60 14 145/65 97 Room Air 10/11/17 15:15 61 14 139/67 100 Oxymask 3 10/11/17 15:07 36.4 63 14 130/64 100 Oxymask 5 10/11/17 12:40 36.2 58 20 167/68 (101) 93 Room Air Notes Mental Status: alert / awake / arousable, participated in evaluation Nausea / Vomiting: adequately controlled Pain: adequately controlled Airway Patency, RR, SpO2: stable & adequate BP & HR: stable & adequate Hydration State: stable & adequate Anesthetic Complications: no major complications apparent
[2017-10-11 15:35] VITALS: BP 155/71; PULSE 61; TEMP 36.6; O2SAT 99
[2017-10-11 16:05] VITALS: BP 152/69; PULSE 61; TEMP 36.7; O2SAT 94
[2017-10-11 16:35] VITALS: BP 166/77; PULSE 60; TEMP 36.4; O2SAT 93
== END 2017-10-11 17:03 | disposition home or self-care (01) ==
LOC: C.ACU 12:05
PROVIDERS: ATTEND Urology
DX: N20.0 Calculus of kidney (principal); N99.3 Prolapse of vaginal vault after hysterectomy; N13.30 Unspecified hydronephrosis; M19.90 Unspecified osteoarthritis, unspecified site; F41.8 Other specified anxiety disorders; E78.00 Pure hypercholesterolemia, unspecified; I10 Essential (primary) hypertension; E03.9 Hypothyroidism, unspecified; H35.30 Unspecified macular degeneration; Z85.038 Personal history of other malignant neoplasm of large intestine; Z79.899 Other long term (current) drug therapy; Z79.82 Long term (current) use of aspirin

== ENCOUNTER → 2018-02-21 | Outpatient (CLI) | payer BC ==
[~2018-02-21] MED LIST changes: -CIPROFLOXACIN / D5W 400 MG IV SCH; -LACTATED RINGER'S 1000ML 1,000 ML IV SCH; +QUIN1TAB49 PO; -QUIN40TA18 PO
== END | disposition home or self-care (01) ==
LOC: C.MAMM 10:14
PROVIDERS: ATTEND Family Medicine
DX: M85.88 Other specified disorders of bone density and structure, other site (principal); M85.851 Other specified disorders of bone density and structure, right thigh; M85.852 Other specified disorders of bone density and structure, left thigh